=== PATIENT | female | born 1960 | race Hispanic/Latino ===

== ENCOUNTER 2019-12-10 15:16 | Emergency (ER) | payer OTHER, SELFPAY ==
--- NOTE | ~2019-12-10 | XR_ITS ---
EXAMINATION: XR chest 1V portable EXAM DATE: 12/10/2019 16:47 INDICATION: Sinus. TECHNIQUE: Portable AP frontal chest x-ray was obtained. There is no prior study for comparison. FINDINGS: The lungs are clear. There are no pleural effusions. The cardiomediastinal silhouette is within normal limits. There is no pneumothorax suspected. The bones and soft tissues are unremarkab le. IMPRESSION: No acute cardiopulmonary findings. Reviewed, dictated and finalized at location A.
--- NOTE | ~2019-12-10 | CT_ITS ---
EXAMINATION: CT brain wo con DATE: 12/10/2019 16:42 INDICATION: Dizziness TECHNIQUE: Computed tomography (CT) of the head was performed without intravenous contrast. The mA wa s adjusted according to patient size. Iterative reconstruction technique was employed. Exam dose: 60 5.33 mGy-cm total exam DLP. COMPARISON: None FINDINGS: There is a prominent anterior left middle cranial fossa arachnoid cyst. No intracranial mass lesion or hemorrhage is evident otherwise. No midline shift or mass effect is no radha elsewhere. Normal ventricular size. Normal burch-white matter differentiation. No subdural or epid ural hematoma. Mild bilateral basal ganglia calcifications. No fracture or bone destruction of the cranial vault. The included paranasal sinuses and mastoid air cells are unremarkable. IMPRESSION: Left middle cranial fossa arachnoid cyst Mild bilateral basal ganglia calcification No acute intracranial finding Reviewed, dictated and finalized at Location A. Reviewed, dictated and finalized at location B.
[2019-12-10 15:21] VITALS: BP 112/83; PULSE 65; RESP 18; TEMP 36.6; O2SAT 100
--- NOTE | 2019-12-10 15:35 | ECG_ITS ---
Measurements Intervals [place] Rate: 55 P: 8 RI: 150 QRS: 19 QRSD: 85 T: 27 QT: 456 QTc: 439 Interpretive Statements SINUS BRADYCARDIA DELAYED PRECORDIAL R/S TRANSITION BORDERLINE ECG Electronically Signed On 12-10-2019 19:44:57 CDT by Glenroy Barrett D.O.
--- NOTE | 2019-12-10 15:35 | ED.GENADULT ---
HPI - General Adult General Chief complaint: Dizziness Stated complaint: Low Blood Pressure Time Seen by Provider: 12/10/19 15:29 Source: RN notes reviewed History of Present Illness HPI narrative: Patient presents emergency department from PCP office for dizziness. Patient states she had an episode of dizziness today where she felt lightheaded and dizzy. Episode lasted for approximately 2 minutes and she went to her PCPs office and was referred to the emergency department for further evaluation. Per the daughter the patient is had 2 episodes over the past 1 month. Patient denies any current dizziness. Denies any vision changes chest pain shortness of breath abdominal pain nausea vomiting numbness tingling in extremities or any other symptoms. Patient does state that she has been worked up for a cyst on the left side of her brain and is scheduled to see a neurosurgeon next week Related Data Home Medications Medication Instructions Recorded Confirmed doxepin 12/10/19 ergocalciferol (vitamin D2) 12/10/19 sertraline mg 12/10/19 Allergies Allergy/AdvReac Type Severity Reaction Status Date / Time Penicillins Allergy Mild Rash Verified 12/10/19 15:24 Review of Systems Review of Systems: Narrative: Gen.: Denies fevers or chills Eyes: Denies eye pain or visual change ENT: Denies congestion Respiratory: Denies shortness of breath or cough CV: Denies chest pain or palpitations GI: Denies abdominal pain nausea, emesis or diarrhea Musculoskeletal: Denies back pain or muscle pain Neuro: Reports dizziness Skin: Denies rash Except as documented, all other systems reviewed and negative [facility] Past Medical History Medical History (Updated 12/10/19 @ 17:41 by Nish Meza DO) Depression Social History Social History (Updated 12/10/19 @ 15:37 by Nish Meza DO) Smoking status: Never smoker Gender identity (if verbalized by the patient): Female Exam Narrative: Exam Narrative: APPEARANCE: No acute distress, nontoxic, resting in bed HEENT: Normocephalic, atraumatic, OMM, TMs clear bilaterally EYES: PERRL, EOMI NECK: Supple, nontender, full range of motion without pain, no meningismus RESPIRATORY: No respiratory distress, clear to auscultation bilaterally with no rhonchi wheezing or rales CARDIOVASCULAR: RRR s murmur ABDOMINAL: Soft, nontender, nondistended MUSCULOSKELETAL: Moves all extremities. No clubbing, cyanosis or edema. NEURO: A and O ?3, following commands, speech normal, no facial droop,muscle strength 5 out of 5 bilateral upper and lower extremities SKIN:: Warm, dry. Normal Color PSYCHIATRIC: Normal affect/mood Course Course Emergency Course: Discussed with patient results of workup and diagnosis. Discussed need for follow-up with primary care, proper use of medication, and reasons to return to the emergency department. Patient understands and agrees to current treatment plan Vital Signs Vital signs: Vital Signs Temperature 97.8 F 12/10/19 15:21 Pulse Rate 65 12/10/19 15:21 Respiratory Rate 18 12/10/19 15:21 Blood Pressure 112/83 12/10/19 15:21 Pulse Oximetry 100 12/10/19 15:21 Temperature 97.8 F 12/10/19 15:21 Pulse Rate 58 L 12/10/19 17:03 Respiratory Rate 18 12/10/19 15:21 Blood Pressure 131/72 12/10/19 17:03 Pulse Oximetry 100 12/10/19 15:21 Medical Decision Making MDM Narrative Medical decision making narrative: Patient's episode of near-syncope is not felt due to high risk cause. Near-syncopal episode was brief and patient is now back to normal mental status. EKG is reviewed without high-risk changes for syncope: There are no signs of prolonged QT or Brugada syndrome. Patient ambulates with a steady gait and is felt to be a reasonable candidate for further evaluation as an outpatient management Vital Signs Vital Signs: Vital Signs Temperature 97.8 F 12/10/19 15:21 Pulse Rate 65 12/10/19 15:21 Respiratory Rate 18 12/10/19 15:21 Blood
[2019-12-10 15:56] LABS: Basophils Percent Auto 0.5 % (0.2-1.2); Eosinophils Absolute Auto 0.1 K/mm3 (0-0.3); Eosinophils Percent Auto 1.4 % (0-4.4); Hematocrit 39.1 % (37.0-47.0); Hemoglobin 12.9 g/dL (12.0-15.0); Immature Granulocyte Absolute 0.02 K/mm3 (0.00-0.031); Immature Granulocyte Percent A 0.3 % (0-0.5); Lymphocytes Absolute Auto 1.38 K/mm3 (0.9-3.2); Lymphocytes Percent Auto 23.3 % (18.3-44.2); Mean Corpuscular Hemoglobin 30.5 pg (26-34); Mean Corpuscular Volume 92.4 fl (80-100); Mean Platelet Volume 10.7 fl (7.4-10.4); Monocytes Absolute Auto 0.4 K/mm3 (0.1-0.6); Monocytes Percent Auto 7.4 % (2.6-8.5); Neutrophils Percent Auto 67.1 % (45.5-73.1); Platelet Count Result 220 k/mm3 (150-375); Red Blood Count 4.23 M/mm3 (4.2-5.4); Red Cell Distribution Width 13.2 % (11.5-14.5); White Blood Count 5.9 K/mm3 (4.5-10.0)
[2019-12-10 16:07] LABS: Alanine Aminotransferase 38 U/L (4-35); Albumin Level 4.4 g/dL (3.5-5.1); Alkaline Phosphatase 67 U/L (38-126); Aspartate Amino Transferase 32 U/L (14-36); Bilirubin,Total 0.6 mg/dL (0.2-1.3); Blood Urea Nitrogen 13 mg/dL (7-17); Calcium 8.8 mg/dL (8.4-10.2); Carbon Dioxide 26 mmol/L (22-30); Chloride 102 mmol/L (98-107); Estimated Glomerular Filt Rate > 60; Glucose 98 mg/dL (65-105); Sodium 137 mmol/L (137-145)
[2019-12-10 16:18] LABS: Troponin I < 0.012 ng/mL (0.000-0.034)
[2019-12-10 16:24] LABS: Partial Thromboplastin Time 34.3 SECONDS (22.3-36.8)
[2019-12-10] MEDS: SODIUM CHLORIDE 0.9% IV 1,000 ML 999 ML IV CONT (16:31)
[2019-12-10 17:02] VITALS: BP 115/57; BP 129/67; PULSE 56; PULSE 60
[2019-12-10 17:03] VITALS: BP 131/72; PULSE 58
[2019-12-10 18:17] LABS: Add Urine Microscopic? YES; Appearance Urine Clear (Clear); Bacteria Urine Trace /hpf; Bilirubin Urine Negative (Negative); Blood Urine Negative (Negative); Color Urine Yellow (Yellow); Glucose Urine UA Negative (Negative); Ketones Urine Negative (Negative); Leukocyte Esterase Ur Negative LEU/UL (Negative); Mucus Urine Rare /lpf; Nitrate Urine Negative (Negative); Protein Urine Negative (Negative); RBC Urine 0-2 /hpf (0-2); Specific Grav Ur 1.018 (1.001-1.035); Squamous Epithelial Cell Urine Occasional /hpf (Few); Urobilinogen Urine Negative mg/dL (<2.0); WBC Urine 0-3 /hpf
== END 2019-12-10 17:50 | disposition home or self-care (01) ==
PROVIDERS: Emergency Provider Emergency Medicine; PCP Emergency Medicine
DX: R42 Dizziness and giddiness (principal); F32.9 Major depressive disorder, single episode, unspecified; R00.1 Bradycardia, unspecified; G93.0 Cerebral cysts
CPT/HCPCS: 36415; 70450; 71045; 80053; 81001; 84484; 85025; 85610; 85730; 93005; 96360; 99284; J7030

== ENCOUNTER 2019-12-11 12:31 | Outpatient (CLI) | payer OTHER, SELFPAY ==
--- NOTE | ~2019-12-11 | MM_ITS ---
EXAMINATION: MM screening nehal BI w olga lidia HISTORY: Screening mammogram TECHNIQUE: Craniocaudal and mediolateral oblique 3-D tomosynthesis images were obtained and synthetic 2-D images were generated. CAD analysis was submitted and interpreted. COMPARISON: No prior mammogram is available for comparison at this institution. BREAST PARENCHYMAL COMPOSITION: There are scattered areas of fibroglandular density. FINDINGS: There is no evidence of suspicious mass, calcification, or architectural distortion to sugg est malignancy in either breast. There has been no suspicious interval change. IMPRESSION: 1. No mammographic evidence of malignancy. 2. Recommend routine screening mammography in one year. BI-RADS Category 1: Negative Reviewed, dictated and finalized at location A.
--- NOTE | ~2019-12-11 | DEXA_ITS ---
Bone Density Report Name: Reina Carlson Age: 59 Sex: Female Ethnicity: Date of : 1960 Indication: postmenopausal osteoporosis; monitoring treatment; Referring Provider: Paresh Deng Study: Bone densitometry was performed. Exam Date: December 11, 2019 Accession number: [id number] Bone Density: Region BMD T-score Z-score Classification AP Spine (L1-L4) 0.736 -2.8 -1.4 Osteoporosis Femoral Neck (Left) 0.451 -3.6 -2.3 Osteoporosis Total Hip (Left) 0.535 -3.3 -2.4 Osteoporosis Total Hip Bilateral Avg 0.536 -3.3 -2.4 Osteoporosis Femoral Neck (Right) 0.562 -2.6 -1.3 Osteoporosis Total Hip (Right) 0.535 -3.3 -2.3 Osteoporosis World Health Organization criteria for BMD impression classify patients as: Normal (T-score at or above -1.0), Osteopenia (T-score between -1.0 and -2.5), or Osteoporosis (T-score at or below -2.5). 10-year Fracture Risk: FRAX not reported because: Some T-score for Spine Total or Hip Total or Femoral Neck at or below -2.5 Treated for osteoporosis Previous Exams: Region Exam Age BMD T-score BMD Change BMD Change Date g/cm2 vs Baseline vs Previous AP Spine(L1-L4) 12/11/2019 59 0.736 -2.8 -0.001(-0.2%) -0.001(-0.2%) 07/31/2016 56 0.737 -2.8 Total Hip(Left) 12/11/2019 59 0.535 -3.3 -0.044(-7.6%)* -0.044(-7.6%)* 07/31/2016 56 0.579 -3.0 Total Hip(Right) 12/11/2019 59 0.535 -3.3 -0.029(-5.2%)* -0.029(-5.2%)* 07/31/2016 56 0.565 -3.1 *Denotes significance at 95% confidence level, LSC for AP Spine = 0.022 g/cm2, LSC for Total Hip = 0.027 g/cm2 Clinical Information Provided by Patient: Is being treated for osteoporosis Has used the following medications: Boniva (i.e. ibandronate), HRT (i.e. estrogen/hormone therapy) Patient maximum height was 60 No regular weight bearing exercise Drinks caffeinated beverages Onset of menses at age 1 Number of children 0 Missed period for more than 6 months in a row Impression: The patient has osteoporosis, based on the Left Femoral Neck T-score. The BMD for the Total Hip(Left) decreased, changing by -7.6% since the last DXA exam. The BMD for the Total Hip(Right) decreased, changing by -5.2% since the last DXA exam. Discussion: SIGNIFICANT BONE LOSS OBSERVED. Adherence to therapy (including calcium and vitamin D intake) should be assessed. If compliance is not a factor, review management and exclusion of secondary causes of bone loss. It is important to ask patients whether they are t
== END 2019-12-11 12:32 | disposition home or self-care (01) ==
LOC: ANHIMG 12:39
PROVIDERS: PCP Emergency Medicine; Visit Provider Emergency Medicine
DX: Z12.31 Encounter for screening mammogram for malignant neoplasm of breast (principal); M81.0 Age-related osteoporosis without current pathological fracture
CPT/HCPCS: 77063; 77067; 77080

== ENCOUNTER 2020-05-04 10:45 | Outpatient (CLI) | payer OTHER, SELFPAY | END 2020-05-04 10:46 | disposition home or self-care (01) | LOC: ANHAUDIO 10:46 | PROVIDERS: PCP Emergency Medicine | DX: H90.3 Sensorineural hearing loss, bilateral (principal) | CPT/HCPCS: 92557; 92567 ==

== ENCOUNTER 2020-05-25 13:20 | Outpatient (CLI) | payer OTHER, SELFPAY ==
--- NOTE | ~2020-05-25 | XR_ITS ---
XR lumbar spine 2-3V DATE: 05/25/2020 14:05 INDICATION: Low back pain. No injury. TECHNIQUE: AP, lateral, coned lateral lumbosacral views COMPARISON: 05/13/2018 lumbar spine FINDINGS: There is diffuse osteopenia. Normal alignment of the lumbar spine. No fracture or bone destruction or spondylolisthesis. The inclu ded lower thoracic and lumbar pedicles are intact. Lumbar and lumbosacral interspaces are relatively well preserved. There is minimal degenerative spurring at L1 to. The sacroiliac joints are intact. IMPRESSION: Diffuse osteopenia Minimal degenerative change Reviewed, dictated and finalized at location B. ENT SUPPORT REPRESENTATIVE
--- NOTE | ~2020-05-25 | XR_ITS ---
XR shoulder LT min 2V DATE: 05/25/2020 14:05 INDICATION: Left shoulder pain TECHNIQUE: 4 views COMPARISON: None FINDINGS: There is diffuse osteopenia. There is mild osteoarthritic spurring of the humeral head. No fracture, dislocation, periosteal reaction or bone destruction or abnormal left shoulder soft tiss ue calcification. IMPRESSION: Osteoarthritis at the left glenohumeral joint Diffuse osteopenia Reviewed, dictated and finalized at location B. T CARE PROVIDER
[2020-05-25 14:48] LABS: Add Urine Microscopic? YES; Appearance Urine Clear (Clear); Bilirubin Urine Negative (Negative); Blood Urine Negative (Negative); Calcium Oxalate Crystals Urine Many /hpf; Color Urine Yellow (Yellow); Glucose Urine UA Negative (Negative); Ketones Urine Trace mg/dL (Negative); Leukocyte Esterase Ur Negative LEU/UL (NEGATIVE); Mucus Urine Moderate /lpf; Nitrate Urine Negative (Negative); Protein Urine Negative (Negative); Squamous Epithelial Cell Urine Rare /hpf (Few); WBC Urine 0-3 /hpf (0-3)
[2020-05-25 14:50] LABS: Specific Grav Ur 1.032 (1.001-1.035)
== END 2020-05-25 13:21 | disposition home or self-care (01) ==
PROVIDERS: PCP Emergency Medicine; Visit Provider Emergency Medicine
DX: M85.88 Other specified disorders of bone density and structure, other site (principal); M19.012 Primary osteoarthritis, left shoulder; R30.0 Dysuria
CPT/HCPCS: 72100; 73030; 81001; 87086; 87088

== ENCOUNTER 2020-05-26 14:00 | Outpatient (RCR) | payer OTHER, SELFPAY | END 2020-05-26 23:59 | disposition home or self-care (01) | LOC: ANHAUDIO 14:00 | PROVIDERS: PCP Emergency Medicine; Visit Provider Emergency Medicine | DX: Z46.1 Encounter for fitting and adjustment of hearing aid (principal) | CPT/HCPCS: 92593; 99199 ==

== ENCOUNTER → 2020-07-05 09:11 | Outpatient (CLI) | payer OTHER, SELFPAY ==
[2020-07-05 19:41] LABS: SARS-CoV-2 RNA PCR Negative
== END ==
PROVIDERS: PCP Emergency Medicine; Visit Provider Emergency Medicine
DX: Z71.84 Encounter for health counseling related to travel (principal); Z20.822 Contact with and (suspected) exposure to COVID-19
CPT/HCPCS: C9803; U0003; U0005

== ENCOUNTER 2020-11-09 09:08 | Emergency (ER) | payer OTHER, SELFPAY ==
[2020-11-09 09:38] VITALS: BP 106/55; PULSE 59; RESP 16; TEMP 35.7; O2SAT 99
--- NOTE | 2020-11-09 10:03 | ED.GENADULT ---
HPI - General Adult General Chief complaint: Upper Respiratory Infection Stated complaint: unspecified Time Seen by Provider: 11/09/20 10:03 Source: patient and RN notes reviewed Mode of arrival: ambulatory Limitations: no limitations History of Present Illness HPI narrative: 60-year-old [place] female presents with complaints of needing to obtain a COVID-19 swab to fly home to [facility] in 3 days. ?Reina reports no symptoms and wants a [id number]. ?Denies cough or chest congestion. ?No Rhinorrhea and nasal congestion. ?Denies fevers. ?No nausea, vomiting, and abdominal pain. ?Tolerating po intake well. ?Denies chest pain, coughing up blood, facial pain, and rash. ?The patient reports she has not been diagnosed with COVID-19. ?The patient reports she received 2 [employer] COVID-19 vaccines. ?The patient reports she is not waiting for the results of a COVID-19 lab test. ?The patient reports she does not have sweats, headaches, dizziness, weakness, myalgia, or fatigue. ?The patient reports she does not have a worsening cough. ?The patient reports she does not have any loss of smell or taste or diarrhea. ?Denies recent traveling. ?Denies concerns for COVID-19 or exposures. ?At this time, the patient is not suspected of having COVID-19. Some parts of this dictation were generated by voice recognition software and may contain typographical and/or grammatical inaccuracies. Related Data Home Medications Medication Instructions Recorded Confirmed ergocalciferol (vitamin D2) 12/10/19 sertraline mg 12/10/19 Unknown Htn Medication 11/09/20 aspirin 11/09/20 escitalopram oxalate mg 11/09/20 Allergies Allergy/AdvReac Type Severity Reaction Status Date / Time Penicillins Allergy Mild Rash Verified 11/09/20 09:45 Review of Systems Review of Systems: Narrative: CONSTITUTIONAL: Denies fever, chills, sweats. Requesting a COVID-19 PCR swab. EYES: Denies visual changes, redness, discharge. ENT: Denies rhinorrhea, congestion, sore throat, otalgia. CARDIOVASCULAR: Denies chest pain, palpitations, edema. RESPIRATORY: Denies wheezing, dyspnea, cough. GASTROINTESTINAL: Denies abdominal pain, nausea, vomiting, diarrhea. SKIN: Denies rash or itching. MUSCULOSKELETAL: Denies acute back pain, joint pain, myalgia. NEUROLOGIC: Denies numbness or focal weakness. PSYCHIATRIC: Denies anxiety or depression, ESTRADA. All systems reviewed & are unremarkable except as noted in HPI and below. [facility] Past Medical History Medical History (Updated 11/09/20 @ 10:17 by SCAR Casillas) Depression Low vitamin D level Mini stroke Sensorineural hearing loss, bilateral Tinnitus, right ear Surgical History Surgical History (Updated 11/09/20 @ 10:13 by SCAR Casillas) No significant past surgical history Family History Family History (Updated 11/09/20 @ 10:14 by SCAR Casillas) Father , Reina reports was related to COVID-19 Hypertension COVID-19 Mother Unknown family medical history Social History Social History (Updated 11/09/20 @ 10:15 by SCAR Casillas) Smoking status: Never smoker Tobacco type: cigarettes Second hand tobacco smoke exposure: No Alcohol intake: current Alcohol use details: socially Substance use: never Substance use type: does not use Living arrangements: with family Occupation/Education: unemployed Gender identity (if verbalized by the patient): Female Comments At time of signature, agree with the nurse past medical, surgical, social, and family history. There is no relevant family history pertinent to the presenting complaint. Exam Narrative: Exam Narrative: GENERAL: This is a well-nourished, well-developed patient, in no apparent distress. Talks in full sentences and ambulates with steady gait without dyspnea. HEAD: Normocephalic, atraumatic. EYES: PERRL. Sclera clear/white. Vision is grossly intact. NOSE: External nose normal with no ob
[2020-11-11 16:57] LABS: SARS-CoV-2 RNA PCR Negative
== END 2020-11-09 10:21 | disposition home or self-care (01) ==
PROVIDERS: Emergency Provider Nurse Practitioner Family
DX: Z20.822 Contact with and (suspected) exposure to COVID-19 (principal)
CPT/HCPCS: 99213; C9803; G0463; U0003; U0005

== ENCOUNTER 2021-09-10 13:23 | Emergency (ER) | payer OTHER, SELFPAY ==
[2021-09-10 13:36] VITALS: BP 122/67; PULSE 65; RESP 18; TEMP 36.2; O2SAT 100
--- NOTE | 2021-09-10 14:08 | ED.WOUNDLAC ---
HPI - Wound/Laceration General Chief Complaint: Wound/Laceration Stated Complaint: Laceration on finger Time Seen by Provider: 09/10/21 14:00 Source: patient, RN notes reviewed and old records reviewed Mode of arrival: ambulatory Limitations: no limitations History of Present Illness HPI narrative: 61-year-old female presents to the [facility] with 1/2 cm laceration to the distal second finger palmar aspect and a splinter in the right palmar aspect of the hand. Patient states that she cut her finger with an box knife approximately an hour prior to arrival. Has had a splinter in her hand since yesterday. Has not attempted to remove it. Unknown last tetanus, patient states that she does not want a tetanus at this time. Related Data Home Medications Medication Instructions Recorded Confirmed ergocalciferol (vitamin D2) 1,250 mcg PO WEEKLY 12/10/19 09/10/21 sertraline 100 mg PO DAILY 12/10/19 09/10/21 aspirin 81 mg PO DAILY 11/09/20 09/10/21 escitalopram oxalate 10 mg PO DAILY 11/09/20 09/10/21 Allergies Allergy/AdvReac Type Severity Reaction Status Date / Time Penicillins Allergy Mild Rash Verified 09/10/21 14:07 Review of Systems Review of Systems: All systems reviewed & are unremarkable except as noted in HPI and below Constitutional: Constitutional: Reports no additional constitutional complaints, Denies chills and Denies fever(s) Eyes: Eyes: Reports no additional eye complaints ENT: Reports system reviewed and no additional complaints, except as documented Cardiovascular: Cardiovascular: Reports no additional cardiovascular complaints, Denies chest pain and Denies dyspnea Respiratory: Respiratory: Reports no additional respiratory complaints, Denies cough and Denies dyspnea Gastrointestinal: Gastrointestinal: Reports no additional gastrointestinal complaints, Denies abdominal pain, Denies nausea and Denies vomiting Musculoskeletal: Musculoskeletal: Reports no additional musculoskeletal complaints Integumentary/Breasts: Skin/Breast: Reports as per HPI Comments: Splinter left hand, laceration left second finger Neurologic: Reports system reviewed and no additional complaints, except as documented Psychiatric: Psychiatric: Reports no additional psychiatric complaints Allergic/Immunologic: Allergic/Immunologic: Reports no additional allergic/immunologic complaints PMFSH Past Medical History Medical History (Updated 09/10/21 @ 19:00 by Parul Haro APRN) Depression Low vitamin D level Mini stroke Sensorineural hearing loss, bilateral Tinnitus, right ear Surgical History Surgical History No significant past surgical history Family History Family History Father , Reina reports was related to COVID-19 Hypertension COVID-19 Mother Unknown family medical history Social History Social History Smoking status: Never smoker Tobacco type: cigarettes Second hand tobacco smoke exposure: No Alcohol intake: current Alcohol use details: socially Substance use: never Substance use type: does not use Gender identity (if verbalized by the patient): Female Comments At the time of my signature, I reviewed and agree with the nursing past medical, surgical, social, and family history. There is no relevant family history pertinent to the patient complaint. Exam Const: General: healthy appearing, no acute distress and alert Nutritional Appearance: well nourished Orientation/consciousness: patient oriented x3 Limitations: no limitations HENMT: Head: normal to inspection Ears: external ears normal Eyes: Pupils: Equal, round and reactive pupils present Neck: Neck: normal visual inspection, no lymphadenopathy and no meningeal signs Chest: Chest palpation & inspection: normal inspection of the chest Resp:
--- NOTE | 2021-09-10 14:51 | PC.NURSE ---
Pt had agreed to Tetanus vaccination during exam however once vaccination was to be administered pt decided she did not want it and told the provider she was afraid she was going to have a reaction to the pain. Provider discussed risks of not updating Tetanus vaccination. RN wasted medication.
== END 2021-09-10 14:25 | disposition home or self-care (01) ==
PROVIDERS: Emergency Provider Nurse Practitioner
DX: S61.211A Laceration without foreign body of left index finger without damage to nail, initial encounter (principal); W26.0XXA Contact with knife, initial encounter; S61.442A Puncture wound with foreign body of left hand, initial encounter; W45.8XXA Other foreign body or object entering through skin, initial encounter; F32.A Depression, unspecified; E55.9 Vitamin D deficiency, unspecified; I25.2 Old myocardial infarction
CPT/HCPCS: 12001; 99212; G0463

== ENCOUNTER 2022-06-24 13:04 | Outpatient (RCR) | payer OTHER, SELFPAY ==
--- NOTE | 2022-06-24 14:19 | PTOPEVAL1 ---
Assessment and note entered by Franklin Loja, PT Evaluation Information Diagnosis Generalized weakness Subjective Information Patient reports a history of osteoporosis and that she does not feel as strong as she could be. Also states she likes walking and does a lot of that without issue, but stairs really tire her out . In addition patient communicates her balance is not great and she is worried about falling. Reported Pain Level Pain Score 0: Self Report Assessment PT Clinical Summary Reina is a 62 year old female coming into the clinic for a diagnosis of generalized weakness. She demonstrates weakness in her hamstrings along with decreased 5 sit to stand test time and decreased balance testing scores. Physical therapy will be working on the patient with resistance exercises, cardio improvement, and balance activities. Plan of Care Interventions Electrical Stimulation,Gait Training,Hot Pack/Cold Pack,Manual Therapy,Neuro Re-education,Patient/ Caregiver Education,Therapeutic Activities, Therapeutic Exercise,Ultrasound PT Services Indicated Yes Treatment Frequency and 1-2x/wk for 4 weeks Duration These treatments will address the objective and functional deficits as defined above. The patient will be advanced safely and appropriately in order for the patient to progress towards his/her prior level of function. Additional exercises will be introduced and as well as a comprehensive home exercise program upon discharge, if needed, ?to ensure carryover of functional gains achieved in the clinic. This treatment plan has been reviewed and agreement upon by the patient.
--- NOTE | 2022-07-05 15:22 | PCPTNOTE ---
Pt no showed for her appt today. TELEGRAPH PLANT MAINTAINER called and she stated she forgot. She was reminded of her next appt next abbie.
--- NOTE | 2022-07-12 15:52 | PCPTNOTE ---
Pt no showed visit again today. MISSILE AND MISSILE CHECKOUT TECHNICIAN called and left message.
--- NOTE | 2022-08-06 13:17 | PCPTNOTE ---
PHYSICAL THERAPY DISCHARGE 08-06-22 Attending Provider: Elen England APRN,AIRBRUSH ARTIST PHOTOGRAPHY Patient:Reina Carlson Date of :1960 Ms. Carlson has not returned for any further treatments since the initial PT evaluation on 06/24/2022, therefore she will be discharged at this time. She did not show for 3 scheduled appointments. The goals were not assessed. Thank you for referring this patient to [facility].
--- NOTE | 2022-08-06 13:19 | PCPTNOTE ---
pt did not show for today's reeval appt.
== END 2022-08-06 13:43 | disposition home or self-care (01) ==
LOC: ANHPT 13:04
DX: M62.81 Muscle weakness (generalized) (principal)
CPT/HCPCS: 97110; 97161; 99199

== ENCOUNTER 2022-07-01 15:33 | Outpatient (RCR) | payer OTHER, SELFPAY | END 2022-07-01 23:59 | disposition home or self-care (01) | LOC: ANHAUDIO 15:33 | DX: Z46.1 Encounter for fitting and adjustment of hearing aid (principal) | CPT/HCPCS: 92593 ==

== ENCOUNTER 2022-09-18 19:30 | Emergency (ER) | payer OTHER, SELFPAY ==
--- NOTE | 2022-09-18 19:35 | ED.FEMALEGU ---
HPI - Female Genitourinary General Chief complaint: Urogenital-Female Stated complaint: UTI Time Seen by Provider: 09/18/22 19:35 Source: patient Mode of arrival: ambulatory Limitations: no limitations History of Present Illness HPI Narrative: 62-year-old female presents with complaint of urinary frequency, dysuria, incontinence for the past 3 days. Denies nausea vomiting diarrhea. No abdominal or back Pain. afebrile. All systems reviewed and negative except as noted above. Related Data Home Medications Medication Instructions Recorded Confirmed ergocalciferol (vitamin D2) 1,250 1,250 mcg PO WEEKLY 12/10/19 09/10/21 mcg (50,000 unit) capsule aspirin 81 mg tablet,delayed 81 mg PO DAILY 11/09/20 09/10/21 release escitalopram oxalate 10 mg tablet 10 mg PO DAILY 11/09/20 09/10/21 cetirizine 10 mg tablet mg 09/18/22 09/18/22 Allergies Allergy/AdvReac Type Severity Reaction Status Date / Time Penicillins Allergy Mild Rash Verified 09/18/22 19:39 Review of Systems Review of Systems: CONSTITUTIONAL: Denies fever, chills, or sweats. EYES: Denies visual changes, redness, or discharge. ENT: Denies rhinorrhea, congestion, sore throat, or otalgia. CARDIOVASCULAR: Denies chest pain, palpitations, or edema. RESPIRATORY: Denies cough or dyspnea. GASTROINTESTINAL: Denies abdominal pain, nausea, vomiting, or diarrhea. GENITOURINARY: Reports dysuria frequency, incontinence. Denies hematuria. SKIN: Denies rash or itching. MUSCULOSKELETAL: Denies back pain, joint pain, or myalgia. NEUROLOGIC: Denies headache, numbness, or weakness. PSYCHIATRIC: Denies anxiety or depression. All other systems reviewed are negative, except as documented in HPI. [facility] Past Medical History Medical History (Updated 09/18/22 @ 19:51 by Brittany Danielson NP) Depression Low vitamin D level Mini stroke Sensorineural hearing loss, bilateral Tinnitus, right ear Surgical History Surgical History No significant past surgical history Family History Family History Father , Reina reports was related to COVID-19 Hypertension COVID-19 Mother Unknown family medical history Social History Social History Smoking status: Never smoker Tobacco type: cigarettes Second hand tobacco smoke exposure: No Alcohol intake: current Alcohol use details: socially Substance use: never Substance use type: does not use Living arrangements: with family Occupation/Education: unemployed Gender identity (if verbalized by the patient): Female Comments At time of signature, agree with nursing past medical, surgical, social and family history. There is no relevant family history pertinent to the presenting complaint. Exam Narrative: GENERAL: This is a well-nourished, well-developed patient, in no apparent distress. HEAD: normocephalic, atraumatic. EYES: PERRL. Sclera clear/white. Vision is grossly intact. EARS: External ears normal NOSE: External nose normal NECK: Neck supple, non-tender without lymphadenopathy, masses or thyromegaly. CARDIOVASCULAR: Regular rate and rhythm without murmurs, gallops, or rubs. RESPIRATORY: Clear to auscultation. Breath sounds equal bilaterally. No wheezes, rales, or rhonchi. SKIN: warm, Dry, intact with no suspicious lesions or rash, good texture and turgor. NEURO: awake, alert, and oriented to person, place and time. There were no obvious focal neurologic abnormalities. EXTREMITIES: No joint tenderness, effusion, or edema noted. Course Course Level of Care: Express Care Visit Vital Signs Vital signs: Vital Signs Temperature 36.8 C 09/18/22 19:37 Pulse Rate 70 09/18/22 19:37 Respiratory Rate 16 09/18/22 19:37 Pulse Oximetry 100 09/18/22 19:37 Oxygen Delivery Room Air 09/18/22 19
[2022-09-18 19:37] VITALS: PULSE 70; RESP 16; TEMP 36.8; O2SAT 100
[2022-09-18 19:49] VITALS: BP 102/60
--- NOTE | 2022-09-20 12:34 | PC.NURSE ---
called and requested results of urine cx. aware is still pending. will call with results.
== END 2022-09-18 19:54 | disposition home or self-care (01) ==
PROVIDERS: Emergency Provider Nurse Practitioner Family; PCP Physician Assistant
DX: N39.0 Urinary tract infection, site not specified (principal); F32.A Depression, unspecified; Z86.73 Personal history of transient ischemic attack (TIA), and cerebral infarction without residual deficits
CPT/HCPCS: 81003; 87086; 87088; 99213; G0463

== ENCOUNTER 2022-12-09 12:07 | Emergency (ER) | payer OTHER, SELFPAY ==
[2022-12-09 12:24] VITALS: BP 91/44; PULSE 63; RESP 16; TEMP 36.3; O2SAT 98
--- NOTE | 2022-12-09 12:39 | ED.FEMALEGU ---
HPI - Female Genitourinary General Chief complaint: Urogenital-Female Stated complaint: pain when urinating Time Seen by Provider: 12/09/22 12:40 Source: patient and RN notes reviewed Mode of arrival: ambulatory Limitations: no limitations History of Present Illness HPI Narrative: 62-year-old female presenting for concern of blood in urine this morning. States her urine is appearing darker than normal. She denies dysuria, frequency, urgency, abdominal pain, flank pain, fevers or chills. Endorses intermittent urinary incontinence over the past few months. Started B12 yesterday. Not taking anything for symptoms. Admits to drinking coffee but not much water daily. Related Data Home Medications Medication Instructions Recorded Confirmed ergocalciferol (vitamin D2) 1,250 1,250 mcg PO WEEKLY 12/10/19 12/09/22 mcg (50,000 unit) capsule aspirin 81 mg tablet,delayed 81 mg PO DAILY 11/09/20 12/09/22 release escitalopram oxalate 10 mg tablet 10 mg PO DAILY 11/09/20 12/09/22 Allergies Allergy/AdvReac Type Severity Reaction Status Date / Time Penicillins Allergy Mild Rash Verified 12/09/22 12:25 Review of Systems Review of Systems: CONSTITUTIONAL: Denies body aches, fever, chills, or sweats. CARDIOVASCULAR: Denies chest pain, palpitations, or edema. RESPIRATORY: Denies cough or dyspnea. GASTROINTESTINAL: Denies abdominal pain, nausea, vomiting, or diarrhea. GENITOURINARY: Reports urine color change denies dysuria, frequency, urgency, hematuria, flank pain SKIN: Denies rash, itching, or wounds. MUSCULOSKELETAL: Denies back pain or myalgia. [facility] Past Medical History Medical History Depression Low vitamin D level Mini stroke Sensorineural hearing loss, bilateral Tinnitus, right ear Surgical History Surgical History No significant past surgical history Family History Family History Father , Reina reports was related to COVID-19 Hypertension COVID-19 Mother Unknown family medical history Social History Social History Smoking status: Never smoker Tobacco type: cigarettes Second hand tobacco smoke exposure: No Alcohol intake: current Alcohol use details: socially Substance use: never Substance use type: does not use Living arrangements: with family Occupation/Education: unemployed Gender identity (if verbalized by the patient): Female Comments At time of signature, I have reviewed and agree with nursing past medical, surgical, social and family history unless otherwise noted. Please see nursing chart for further information. There is no relevant family history pertinent to the presenting complaint Exam Narrative: GENERAL: Well-appearing EYES: EOMI. . ENT: Mucous membranes pink and moist. NECK: Normal AROM. Supple. CHEST: No respiratory distress. Clear to auscultation. HEART: Regular rate and rhythm. ABDOMEN: Soft, nontender, nondistended, normal active bowel sounds. No CVA tenderness MUSCULOSKELETAL: No bony tenderness. SKIN: Warm, dry, no rash. NEURO: No focal deficits. Alert and oriented x3. Gait steady. PSYCH: Normal affect. No signs of depression or anxiety. Course Course Emergency Course: Patient is aware of diagnosis, understands and agrees to treatment plan. Anticipatory guidance given. Patient agrees to follow-up as directed and is aware of reasons to seek care at the emergency department. Portions of this record may have been created with voice recognition software Level of Care: Express Care Visit Vital Signs Vital signs: Vital Signs Temperature 97.4 F L 12/09/22 12:24 Pulse Rate 63 12/09/22 12:24 Respiratory Rate 16 12/09/22 12:24 Blood Pressure 91/44 L 12/09/22 12:24 Pulse Oximetr
== END 2022-12-09 12:58 | disposition home or self-care (01) ==
PROVIDERS: Emergency Provider Nurse Practitioner Family; PCP Physician Assistant
DX: R82.998 Other abnormal findings in urine (principal); E55.9 Vitamin D deficiency, unspecified; F32.A Depression, unspecified; Z86.73 Personal history of transient ischemic attack (TIA), and cerebral infarction without residual deficits
CPT/HCPCS: 81003; 99212; G0463

== ENCOUNTER 2023-09-15 18:13 | Emergency (ER) | payer OTHER, SELFPAY ==
[2023-09-15 19:15] VITALS: BP 108/48; PULSE 62; RESP 20; TEMP 36.5; O2SAT 98
--- NOTE | 2023-09-15 19:54 | ED.FEMALEGU ---
HPI - Female Genitourinary General Chief complaint: Urogenital-Female Stated complaint: blood in urine Time Seen by Provider: 09/15/23 19:54 Source: patient Mode of arrival: ambulatory Limitations: no limitations History of Present Illness HPI Narrative: 63-year-old female presents with complaint of blood in urine yesterday. No blood in urine today. States since yesterday she has had dysuria, frequency, not peeing normally . Afebrile. Denies abdominal, back pain. All systems reviewed and negative except as noted above. Related Data Home Medications Medication Instructions Recorded Confirmed ergocalciferol (vitamin D2) 1,250 1,250 mcg PO WEEKLY 12/10/19 09/15/23 mcg (50,000 unit) capsule aspirin 81 mg tablet,delayed 81 mg PO DAILY 11/09/20 09/15/23 release escitalopram oxalate 10 mg tablet 10 mg PO DAILY 11/09/20 09/15/23 thiamine HCl (vitamin B1) 100 mg 100 mg PO DAILY 09/15/23 09/15/23 tablet Allergies Allergy/AdvReac Type Severity Reaction Status Date / Time Penicillins Allergy Mild Rash Verified 09/15/23 18:28 Review of Systems Review of Systems: CONSTITUTIONAL: Denies fever, chills, or sweats. EYES: Denies visual changes, redness, or discharge. ENT: Denies rhinorrhea, congestion, sore throat, or otalgia. CARDIOVASCULAR: Denies chest pain, palpitations, or edema. RESPIRATORY: Denies cough or dyspnea. GASTROINTESTINAL: Denies abdominal pain, nausea, vomiting, or diarrhea. GENITOURINARY: Reports dysuria, frequency, hematuria. SKIN: Denies rash or itching. MUSCULOSKELETAL: Denies back pain, joint pain, or myalgia. NEUROLOGIC: Denies headache, numbness, or weakness. PSYCHIATRIC: Denies anxiety or depression. All other systems reviewed are negative, except as documented in HPI. [facility] Past Medical History Medical History Depression Low vitamin D level Mini stroke Sensorineural hearing loss, bilateral Tinnitus, right ear Surgical History Surgical History No significant past surgical history Family History Family History Father , Reina reports was related to COVID-19 Hypertension COVID-19 Mother Unknown family medical history Social History Social History Smoking status: Never smoker Tobacco type: cigarettes Second hand tobacco smoke exposure: No Alcohol intake: current Alcohol use details: socially Substance use: never Substance use type: does not use Living arrangements: with family Occupation/Education: unemployed Gender identity (if verbalized by the patient): Female Exam Narrative: GENERAL: This is a well-nourished, well-developed patient, in no apparent distress. HEAD: normocephalic, atraumatic. EYES: PERRL. Sclera clear/white. Vision is grossly intact. EARS: External ears normal NOSE: External nose normal NECK: Neck supple, non-tender without lymphadenopathy, masses or thyromegaly. CARDIOVASCULAR: Regular rate and rhythm without murmurs, gallops, or rubs. RESPIRATORY: Clear to auscultation. Breath sounds equal bilaterally. No wheezes, rales, or rhonchi. GASTROINTESTINAL: Abdomen soft, non-tender, nondistended. Bowel sounds are active. No hepato-splenomegaly, or palpable masses. No guarding. SKIN: warm, Dry, intact with no suspicious lesions or rash, good texture and turgor. NEURO: awake, alert, and oriented to person, place and time. There were no obvious focal neurologic abnormalities. EXTREMITIES: No joint tenderness, effusion, or edema noted. Course Course Level of Care: Express Care Visit Vital Signs Vital signs: Vital Signs Temperature 36.5 C 09/15/23 19:15 Pulse Rate 62 09/15/23 19:15 Respiratory Rate 20 09/15/23 19:15 Blood Pressure 108/48 L 09/15/23 19:15 Pulse Oxime
== END 2023-09-15 20:16 | disposition home or self-care (01) ==
PROVIDERS: Emergency Provider Nurse Practitioner Family
DX: N39.0 Urinary tract infection, site not specified (principal); F32.A Depression, unspecified; Z86.73 Personal history of transient ischemic attack (TIA), and cerebral infarction without residual deficits
CPT/HCPCS: 81003; 87086; 87088; 99213; G0463

== ENCOUNTER 2025-02-17 09:02 | Emergency (ER) | payer MEDICARE, SELFPAY ==
--- OUTSIDE RECORDS SUMMARY | 2004-09-18 19:00 | XMS_ITS | Continuity of Care Document ---
Author Organization [employer] [facility] Address [address] [place] [address] Phone Care Team Providers Care Auto Body Estimator Name Role Phone Unavailable Unavailable Unavailable Advance Directives Directive Yes / No Effective Date File Name No Information Encounters Encounter Description Practice Location Reason(s) For Visit Diagnoses Date Provider Providers Copied on Encounter [facility] , [address], [place], [place], [id number], [place] tel:[phone] [facility] [place] No Information No Information Family History Family Member Type Diagnosis Age At Onset No Information Payers Payer name Insurance type Covered democrat ID Authoriza tion(s) No Information Social History Type Description Quantity Date Captured Comments Sex Female Smoking Status No Information Vital Signs Date / Time: Height Weight BMI Pulse Rate Blood Pressure Temperature Respiratory Rate Body Surface Area Head Circumference Head Circ. Percentile Wt./[place]dal[place]. Percentile BMI percentile Pulse Ox Inhaled Ox 1:03 PM 4.10 in 121.00 lbs 0.00 kg/m eter (2) 60 /min 110/80 mm[Hg] 0.00 F 16 /min 0.00 cm 0 % Chief Complaint And Reason For Visit No Information Reason For Referral Reason For Referral No Information History Of Present Illness Encounter Date Complaint History Of Prese nt Illness No Information Functional Status Date Functional Assessmen t No Information Instructions Date Instruction Additional Infor mation No Information Assessments Type Assessment Date No Information Patient Care Teams Name Effective Dates (start - stop) Status Members No Information
--- OUTSIDE RECORDS SUMMARY | 2004-09-18 19:00 | XMS_ITS | Continuity of Care Document ---
Author Organization [employer] [facility] Address [address] [place] [address] Phone Care Team Providers Care Filter Changing Technician Name Role Phone Unavailable Unavailable Unavailable Advance Directives Directive Yes / No Effective Date File Name No Information Encounters Encounter Description Practice Location Reason(s) For Visit Diagnoses Date Provider Providers Copied on Encounter [facility] , [address], [place], [place], [id number], [place] tel:[phone] [facility] [place] No Information No Information Family History Family Member Type Diagnosis Age At Onset No Information Payers Payer name Insurance type Covered alliance party ID Authoriza tion(s) No Information Social History [...]
--- NOTE | ~2025-02-17 | CT_ITS ---
EXAMINATION: CT abdomen pelvis w con DATE: 02/17/2025 10:43 INDICATION: Constipation. TECHNIQUE: Computed tomography (CT) of the abdomen and pelvis was performed with 100 mL Omnipaque 350 intravenous contrast. Automated exposure control and iterative reconstruction technique were employed. The dose-length product was 201.00 mGy-cm. COMPARISON: CT abdomen and pelvis 01/01/2019 FINDINGS: The visualized portions of the lung bases are clear without pneumonia or pleural effusion. The heart size is normal. No pericardial effusion. There is diffuse hepatic steatosis. The gallbladder, spleen, pancreas, adrenal glands, and left kidney are normal. There is a 4 mm cyst in right kidney. There are scattered diverticula in the colon. There is fat stranding around a diverticulum of the sigmoid colon with wall thickening of the sigmoid colon, consistent with diverticulitis. The appendix is normal. There are no dilated loops of bowel. There are no pathologically enlarged lymph nodes. There is no free intraperitoneal fluid. There is mild thoracic and lumbar spondylosis. There is a chronic compression fracture of T12. IMPRESSION: 1. Acute sigmoid diverticulitis. No perforation or abscess. Reviewed, dictated and finalized at location E.
[2025-02-17 09:14] VITALS: BP 101/61; PULSE 65; RESP 16; TEMP 36.4; O2SAT 98
--- OUTSIDE RECORDS SUMMARY | 2025-02-17 09:23 | XMS_ITS | Encounter Summary ---
Author Organization [facility] Address [address] [place] [address] Care Team Providers Care Ruby Software Developer Name Role Phone Elen Lindquist APRN-FAMILY SERVICES WORKER Primary Care Provider Clara Simmons MD Primary Care Provider [phone] Encounter Details Date Type Department Care Team (Late st Contact Info) Description 02/04/2022 Telephone [facility] [address] [place] [address] Elen Lindquist APRN-FAMILY SERVICES WORKER [address] [phone] Social History Tobacco Use Types Packs/Day Years Used Date Smoking Tobacco: Some Days Cigarettes Smokeless Tobacco: Never Comments:socially Alcohol Use Standard Drinks/Week Comments Yes 2 (1 standard drink = 0.6 oz pur e alcohol) PHQ-2 Answer Date Recorded PHQ2 TOTAL SCORE 0 01/18/2022 Comments No Sex and Gender Information Value Date Recorded Sex Assigned at Not on file Legal Sex Female 11:25 AM CDT Gender Identity Not on file Sexual Orientation Not on file documented as of this encounter Miscellaneous Notes * Telephone Encounter - Cody Markiko - 02/04/2022 11:20 AM CDT Pt maribeth wanted to get paperwork filled out from her employer . Pt stated the paperwork is to keep her from taking the flu shot and she needs it as soon as possible. Pt stated she wanted to know how to go about getting the paperwork to the doctor and filled out . Pt stated she was [place] for [place] the [place] so she cant schedule an appointment but she needs this paperwork in before her trip. Pt requesting a callback [phone] documented in this encounter Plan of Treatment Upcoming Encounters Date Type Department Care Team (Late st Contact Info) Description 05/24/2025 3:30 PM PONY EDGER Office Visit [facility] - Geriatrics [address] [place] [phone] Clara Simmons MD [address] [place] [phone] 10/07/2025 10:00 AM CDT Office Visit [facility] - Ophthalmology [address] [place] [phone] documented as of this encounter Goals Goal Patient Goal Type Associated Problems Recent Progress Patient-Stated? Author Medication Management General On track( 022 8:53 AM CDT) Norma Okeefe, RN Note: Expected end date: ongoing Interventions: Take all medications as prescribed Let your doctor know right away about any changes in your medications Make sure to request a refill of your medication at least one week prior to your last dose documented as of this encounter Visit Diagnoses Not on filedocumented in this encounter Additional Health Concerns Infection Onset Date Last Indicated Resolved Time CDIFF Under Investigation 05/24/2022 05/24/2022 5:07 AM CDT documented as of this encounter Care Teams Ruby Software Developer Relationship Specialty Start Date End Date Elen Lindquist APRN-FAMILY SERVICES WORKER PCP - General 06/02/20 08/19/24 Clara Simmons MD [address] [place] [phone] PCP - General Internal Medicine Geriatric Medicine 08/20/24 documented as of this encounter
--- OUTSIDE RECORDS SUMMARY | 2025-02-17 09:23 | XMS_ITS | Encounter Summary ---
Author Organization [facility] Address [address] [place] [address] Care Team Providers Care Underwear Hemmer Name Role Phone Adelina Barrera MD Primary Care Provider Adelina Barrera MD Primary Care Provider Encounter Details Date Type Department Care Team (Late st Contact Info) Description 10/28/2013 Ancillary Orders [facility] General Laboratory Services [address] [facility] [place] [phone] Adelina Barrera MD [address] [facility] [address] [place] [phone] Social History Tobacco Use Types Packs/Day Years Used Date Smoking Tobacco: Never Alcohol Use Standard Drinks/Week Comments No 0 (1 standard drink = 0.6 oz pur e alcohol) Comments No Sex and Gender Information Value Date Recorded Sex Assigned at Not on file Legal Sex Female 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
--- OUTSIDE RECORDS SUMMARY | 2025-02-17 09:23 | XMS_ITS | Encounter Summary ---
Author Organization [facility] Address [address] [place] [address] Care Team Providers Care Supervisor Front Name Role Phone Adelina Barrera MD Primary Care Provider [phone] Encounter Details Date Type Department Care Team (Late st Contact Info) Description 05/24/2014 Ancillary Orders [facility] General Laboratory Services [address] [facility] [place] [phone] Adelina Barrera MD [address] [place] [address] [address] [place] [phone] Social History Tobacco Use Types Packs/Day Years Used Date Smoking Tobacco: Never Smokeless Tobacco: Never Alcohol Use Standard Drinks/Week Comments No 0 (1 standard drink = 0.6 oz pur e alcohol) Comments No Sex and Gender Information Value Date Recorded Sex Assigned at Not on file 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
--- OUTSIDE RECORDS SUMMARY | 2025-02-17 09:23 | XMS_ITS | Encounter Summary ---
Author Organization [facility] Address [address] [facility] [place] [address] Care Team Providers Care Sea Air Land Officer Name Role Phone Clara Simmons MD Primary Care Provider [phone] Encounter Details Date Type Department Care Team (Late st Contact Info) Description 09/06/2024 Telephone [facility] - Geriatrics [address] [place] [address] [place] [phone] Clara Simmons MD [address] [place] [phone] Social History Tobacco Use Types Packs/Day Years Used Date Smoking Tobacco: Some Days Cigarettes 0.1 40 Smokeless Tobacco: Never Alcohol Use Standard Drinks/Week Comments Yes 2 (1 standard drink = 0.6 oz pur e alcohol) PHQ-2 Answer Date Recorded PHQ2 TOTAL SCORE 1 12/20/2022 Comments No Sex and Gender Information Value Date Recorded Sex Assigned at Not on file Legal Sex Female 11:25 AM CDT Gender Identity Not on file Sexual Orientation Not on file documented as of this encounter Functional Status * Is person deaf or have serious hearing difficulty? Answer Date of Assessment Author No 06/09/2023 2:13 PM Verito Reeves RN * Is person blind or have serious difficulty seeing? Answer Date of Assessment Author No 06/09/2023 2:13 PM Verito Reeves RN * Does person have serious difficulty walking/climbing stairs? Answer Date of Assessment Author No 06/09/2023 2:13 PM Veriot Reeves RN * Does person have difficulty dressing/bathing? Answer Date of Assessment Author No 06/09/2023 2:13 PM Verito Reeves RN * Does person have difficulty doing errands alone? Answer Date of Assessment Author No 06/09/2023 2:13 PM Verito Reeves RN documented as of this encounter Mental Status * Does person have difficulty concentrating/remembering/making decisions? Answer Entry Date Author No 06/09/2023 2:13 PM Verito Reeves RN documented in this encounter Miscellaneous Notes * Telephone Encounter - Geno Mars - 09/06/2024 12:10 PM CDT Current Provider: Dr. Simmons Reason for Call: Ms. Reina Carlson needs PRIOR AUTH for three medicines. tretinoin (Retin-A) 0.05 % cream Vitamin D 3 Vitamin B 1 cetirizine (ZyrTEC) 10 MG tablet (Pt would like to know what is this med for) [id number] [address] [facility] [id number] [facility] 159 Patient Call Back Number: [phone] documented in this encounter Plan of Treatment Upcoming Encounters Date Type Department Care Team (Late st Contact Info) Description 05/24/2025 3:30 PM ANNEALER Office Visit [facility] - Geriatrics [address] [place] [phone] Clara Simmons MD [address] [place] [phone] 10/07/2025 10:00 AM CDT Office Visit [facility] - Ophthalmology [address] [place] [phone] documented as of this encounter Goals Goal [...] on filedocumented in this encounter Care Teams Sea Air Land Officer Relationship Specialty Start Date End Date Clara Simmons MD [address] [place] [phone] PCP - General Internal Medicine Geriatric Medicine 08/20/24 documented as of this encounter
--- OUTSIDE RECORDS SUMMARY | 2025-02-17 09:23 | XMS_ITS | Encounter Summary ---
Author Organization [facility] Address [address] [facility] [place] [address] Care Team Providers Care Loss Prevention Auditor Name Role Phone Clara Simmons MD Primary Care Provider [phone] Reason for Referral * Radiology Services (Routine) - Open Specialty Diagnoses / Procedures Referred By Contac t Referred To Contact Ultrasound Diagnoses PMB (postmenopausal bleeding) Procedures US Pelvis W Transvag Non Ob Chen Ballard MD [address] [place] [address] Phone: tel: fax: Referral ID Status Reason Start Date Expiration Date Visits Re quested Visits Authorized [id number] Open 10/27/2024 10/27/2025 1 1 Reason for Visit * Reason Onset Date Comments Nurse Only 10/27/2024 Encounter Details Date Type Department Care Team (Late st Contact Info) Description 10/27/2024 Telephone [facility] - FOREIGN EXCHANGE SERVICES MANAGER [address] [place] [address] Chen Ballard MD [address] [place] [address] Nurse Only Social History Tobacco Use Types Packs/Day Years Used Date Smoking Tobacco: Some Days Cigarettes 0.1 40 Smokeless Tobacco: Never Alcohol Use Standard Drinks/Week Comments Yes 2 (1 standard drink = 0.6 oz pur e alcohol) PHQ-2 Answer Date Recorded Patient Health Questionnaire-2 Score 0 10/14/2024 Comments No Sex and Gender Information Value [...] encounter Miscellaneous Notes * Telephone Encounter - Alyssa Martins RN - 10/27/2024 2:18 PM CDT US order under procedures. RN ordered under imaging. RN called pt . No answer, left VM to make aware can schedule now and to please call us back once she has that appt so we can schedule a f/u with Dr Varela * Telephone Encounter - Freddie Freeman - 10/27/2024 2:12 PM CDT Pt calling needing an order sent over to get her US scheduled she left number for [facility] documented in this encounter Plan of Treatment Upcoming Encounters Date Type Department Care Team (Late st Contact Info) Description 05/24/2025 3:30 PM HEAD OF PHYSICS Office Visit [facility] - Geriatrics [address] [place] [phone] Clara Simmons MD [address] [place] [phone] 10/07/2025 10:00 AM CDT Office Visit [facility] - Ophthalmology [address] [place] [phone] Scheduled Orders Name Type Priority Associated Diagnoses Orde r Schedule US Pelvis W Transvag Non Ob Imaging Routine PMB (postmenopausal bleeding) 1 Occurrences starting 10/27/2024 until 10/27/2025 documented as of this encounter Goals Goal [...] documented as of this encounter Visit Diagnoses Diagnosis PMB (postmenopausal bleeding)- Primary Postmenopausal bleeding documented in this encounter Care Teams Loss Prevention Auditor Relationship Specialty Start Date End Date Clara Simmons MD [address] [place] [phone] PCP - General Internal Medicine Geriatric Medicine 08/20/24 documented as of this encounter
--- OUTSIDE RECORDS SUMMARY | 2025-02-17 09:23 | XMS_ITS | Clinical Summary ---
Author Organization [facility] Address [address] [facility] [place] [address] Phone Care Team Providers Care Property Officer Name Role Phone Unavailable Primary Care Provider Unavailabl e Allergies Active Allergy Reactions Criticality Noted Date Comments Penicillins Unknown 08/12/2011 Teriparatide Other (See Comments) 09/02/2013 Made her ill Medications CETIRIZINE HCL (ZYRTEC ORAL) Take by mouth. Prn Active ibandronate (BONIVA) 150 mg tablet TAKE 1 TABLET BY MOUTH EVERY 30 DAYS 3 Tablet 1 03/29/2015 Active PARoxetine HCl (PAXIL) 20 mg tabletIndication s:Anxiety,Depres nick Take 2 Tablet (40 mg) by mouth daily. 60 Tablet 5 07/04/2015 Active clonazePAM (KLONOPIN) 0.5 mg TabletIndication s:Anxiety Take 1 Tablet (0.5 mg) by mouth 2 times daily. 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 Overview (10/26/2013): -unclear what underlying etiology was Menopause 10/26/2013 Family history of diabetes mellitus 09/02/2013 Panic attacks 09/02/2013 Depression 09/02/2013 Fatigue 09/02/2013 Resolved Problems Problem Noted Date Diagnosed Date Resolved Date Family history of breast cancer 09/02/2013 10/26/2013 Family history of colon cancer 09/02/2013 10/26/2013 Family History Medical History Relation Name Comments Unknown Brother Cancer Father prostate Hypertension Father Diabetes Mother Heart Disease Mother Unknown Sister Breast Cancer Neg Hx except for aun t Colon Cancer Neg Hx except for uncl e Ovarian Cancer Neg Hx Relation Name Status Comments Brother Alive Father Alive Mother Alive Sister Alive Social History Tobacco Use Types Packs/Day Years Used Date Smoking Tobacco: Never Smokeless Tobacco: Never Alcohol Use Standard Drinks/Week Comments No 0 (1 standard drink = 0.6 oz pur e alcohol) Comments No Sex and Gender Information Value Date Recorded Sex Assigned at Not on file Legal Sex Female 6:20 AM ROLLED GOLD PLATER Gender Identity Not on file Sexual Orientation Not on file Occupation Industry Job Start Date Job End Date Not on file Not on file Not on file Not on file Last Filed Vital Signs Vital Sign Reading Time Taken Comments Blood Pressure 104/66 09/13/2015 3:01 PM CDT Pulse 82 09/13/2015 3:01 PM CDT Temperature 36.7 C (98.1 F) 07/27/2015 11:47 AM ROLLED GOLD PLATER Respiratory Rate 14 03/28/2014 1:58 PM ROLLED GOLD PLATER Oxygen Saturation 95% 07/27/2015 11:47 AM ROLLED GOLD PLATER ra Inhaled Oxygen Concentration - - Weight 57.2 kg (126 lb) 09/13/2015 3:01 PM CDT Height 149.9 cm (4' 11) 09/13/2015 3:01 PM CDT Body Mass Index 25.45 09/13/2015 3:01 PM CDT Plan of Treatment Health Maintenance Due Date Last Done Comments DTAP/TDAP/TD VACCINES (1 - Tdap) 1978 FIT-DNA Q 3 years 2004 FIT/FOBT Q 1 year 2004 Flex Sig/CT Colonography Q 5 years 2004 PNEUMOCOCCAL VACCINE 50+ YEA RS (1 of 1 - PCV) 2009 ZOSTER VACCINE (1 of 2) 2009 BREAST CANCER SCREENING 10/01/2014 10/01/2013 OSTEOPOROSIS SCREENING 2024 09/15/2013, 2013 COLORECTAL SCREENING 03/28/2024 03/28/2014, 03/28/20 14 Colorectal Cancer Screening 03/28/2024 INFLUENZA VACCINE (#1) 2024 RSV VACCINE (60+ or ) (1 - 1-dose 75+ series) 2034 Procedures Procedure Name Priority Date/Time Associated Diagnosis Comments ENDOSCOPY, COLON, SCREENING Routine 03/28/2014 MAMMO SCREEN BILAT W OR WO CAD Routine 10/01/2013 3:49 PM CDT Other screening mammogram XR DEXA BONE DENSITY AXIAL 1 OR MORE SITES Routine 09/15/2013 8:46 AM CDT Osteoporosis from Last 3 Months or Most Recently Relevant to Health Maintenance Results * ENDOSCOPY, COLON, SCREENING (03/28/2014) Whit Sanchez MD GI PROCEDURE ORDERABLES Edited Result - Final * MAMMO DIGITAL SCREEN BILAT (10/01/2013 3:49 PM CDT) Anatomical Region Laterality Modality Breast Bilateral Mammography 10/01/2013 2:51 PM CDT Impressions 10/12/2013 10:58 AM CDT IMPRESSION: CATEGORY 1: NEGATIVE MAMMOGRAM No evidence of malignancy. Recommend routine screening mammogram in one year. Narrative 10/12/2013 10:58 AM CDT PROCEDURE: Bilateral screening mammography with computer-aided detection DATE: 10/01/2013 COMPARISON: Comparison is made to previous bilateral mammogram dated 11/15/2010 from [facility] in [place], [place]. HISTORY: Screening for breast cancer. FINDINGS: This examination was reviewed with the aid of computer aided detection system (CAD). CC and MLO views show heterogeneously dense fibroglandular tissue which may obscure small lesions with no significant changes in the architectural pattern of either breast. No new or enlarging mass, architectural distortion, suspicious microcalcifications, or skin thickening is found to suggest developing malignancy. Procedure Note Joaquim Begum MD - 10/12/2013 PROCEDURE: Bilateral screening mammography with computer-aided detection DATE: 10/01/2013 COMPARISON: Comparison is made to previous bilateral mammogram dated 11/15/2010 from [facility] in [place], [place]. HISTORY: Screening for breast cancer. FINDINGS: This examination was reviewed with the aid of computer aided detection system (CAD). CC and MLO views show heterogeneously dense fibroglandular tissue which may obscure small lesions with no significant changes in the architectural pattern of either breast. No new or enlarging mass, architectural distortion, suspicious microcalcifications, or skin thickening is found to suggest developing malignancy. IMPRESSION IMPRESSION: CATEGORY 1: NEGATIVE MAMMOGRAM No evidence of malignancy. Recommend routine screening mammogram in one year. Leda Ralph APRN MAMMO ORDERABLES Final Resu lt * (ABNORMAL) XR DEXA BONE DENSITY AXIAL 1 OR MORE SITES (09/15/2013 8:46 AM CDT) Anatomical Region Laterality Modality Computed Radiogr aphy Narrative 09/15/2013 11:26 AM CDT DXA Bone Density Report 09/15/2013 Age: 53 y.o. Gender: female Equipment: [employer] Respiratory Care Specialist: Nithya Quinn CDT LSC: Spine= 0.026 gm/cm Hip total: Right= 0.017gm/cm Left= 0.024 gm/cm Risk factors: Non-modifiable: female and personal history of fracture as an adult Potentially modifiable: estrogen deficient and body weight below 127 pounds Medications: none Other indication: chronic amenorrhea since a teenager. History of bone loss. Patient took teriparatide for six months and discontinued due to side effects. She took ibandronate for 2-3 years (on and off). To my knowledge she is not currently taking an anti-resorptive therapy. Interpretation: According to World Health Organization criteria, osteoporosis is a bone mineral density (BMD) of less than or equal to -2.5 standard deviations (SD) below the mean of the young adult reference population (T-score of -2.5 or less) in postmenopausal females and men age 50 or over. In this age group, low bone mass (osteopenia) is diagnosed with a T-score of -1.1 to -2.4. People with low bone mass are not necessarily at high fracture risk, and other risk factors must be utilized in determining the significance of low bone mass in these individuals. Reina Carlson has a T-score of -2.9 at the AP L1-L4 spine. The AP L1-L4 spine BMD is 0.837 gm/cm . Reina Carlson has a T-score of -3.6 at the right total hip. The right total hip BMD is 0.551 gm/cm . Opinion: Osteoporosis is present. I cannot utilize FRAX due to the previous therapy. I am concerned this patient is still at increased risk for fracture. This patient does meet National Osteoporosis Foundation guidelines for consideration to pharmacologic therapy. Z-score at the right total hip is -3.0. It may be helpful to evaluate for secondary causes of bone loss with reinstitution of therapy as indicated. Follow-up densitometry recommended in 2 years. Vertebral Fracture Assessment (VFA) Indication for exam: osteoporosis Equipment: [employer] Plus [employer] s semiquantitative analysis and assessment criteria are utilized for vertebral fracture identification and classification. VFA is designed to detect vertebral deformities, not to determine etiology or to evaluate other abnormalities Technical quality is good from T11-L3 and fair from T5-T10 with some limitations due to artifact from T8-T10 and L4. Opinion: I do not identify a vertebral compression fracture. Procedure Note Julianne Fuentes MD - 09/15/2013 DXA Bone Density Report 09/15/2013 Age: 53 y.o. Gender: female Equipment: [employer] Respiratory Care Specialist: Nithya Quinn CDT LSC: Spine= 0.026 gm/cm Hip total: Right= 0.017gm/cm Left= 0.024gm/cm Risk factors: Non-modifiable: female and personal history of fracture as an adult Potentially modifiable: estrogen deficient and body weight below 127pounds Medications: none Other indication: chronic amenorrhea since a teenager. History of boneloss. Patient took teriparatide for six months and discontinued due toside effects. She took ibandronate for 2-3 years (on and off). To myknowledge she is not currently taking an anti-resorptive therapy. Interpretation: According to World Health Organization criteria,osteoporosis is a bone mineral density (BMD) of less than or equal to -2.5standard deviations (SD) below the mean of the young adult referencepopulation (T-score of -2.5 or less) in postmenopausal females and men age50 or over. In this age group, low bone mass (osteopenia) is diagnosedwith a T-score of -1.1 to -2.4. People with low bone mass are notnecessarily at high fracture risk, and other risk factors must be utilizedin determining the significance of low bone mass in these individuals. Reina Carlson has a T-score of -2.9 at the AP L1-L4 spine. The AP L1-J7xvyly BMD is 0.837 gm/cm . eRina Carlson has a T-score of -3.6 at the right total hip. The righttotal hip BMD is 0.551 gm/cm . Opinion: Osteoporosis is present. I cannot utilize FRAX due to theprevious therapy. I am concerned this patient is still at increased riskfor fracture. This patient does meet National Osteoporosis Foundationguidelines for consideration to pharmacologic therapy. Z-score at theright total hip is -3.0. It may be helpful to evaluate for secondarycauses of bone loss with reinstitution of therapy as indicated. Follow-updensitometry recommended in 2 years. Vertebral Fracture Assessment (VFA) Indication for exam: osteoporosis Equipment: [employer] Gen[employer] semiquantitative analysis and assessment criteria are utilizedfor vertebral fracture identification and classification. VFA is designedto detect vertebral deformities, not to determine etiology or to evaluateother abnormalities Technical quality is good from T11-L3 and fair from T5-T10 with somelimitations due to artifact from T8-T10 and L4. Opinion: I do not identify a vertebral compression fracture. Leda Ralph APRN DIAGNOSTIC IMAGING ORDERABL ES Final Result from Last 3 Months or Most Recently Relevant to Health Maintenance Advance Directives For more information, please contact: [phone] * Full Code (Latest Code Status on File) Date Activated Date Inactivated Comments 03/28/2014 11:15 AM 03/28/2014 4:03 PM
--- OUTSIDE RECORDS SUMMARY | 2025-02-17 09:23 | XMS_ITS | Clinical Summary ---
Author Organization [facility] Address [address] [place] [address] Phone Care Team Providers Care Dance Choreographer Name Role Phone Paresh Deng MD Primary Care Provider [phone] Medications hydrOXYzine (VISTARIL) 100 MG Capsule Take 100 mg by mouth 3 times daily as needed for Itching. Active divalproex (DEPAKOTE SPRINKLE) 125 MG Capsule Delayed Release Sprinkle Take 125 mg by mouth 2 times daily. Active sertraline (ZOLOFT) 100 MG Tablet Take 50 mg by mouth daily. Active traZODone (DESYREL) 50 MG Tablet Take 50 mg by mouth nightly. Active busPIRone (BUSPAR) 15 MG Tablet Take 15 mg by mouth 3 times daily. 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 Social History Tobacco Use Types Packs/Day Years Used Date Smoking Tobacco: Never Smokeless Tobacco: Never Alcohol Use Standard Drinks/Week Comments No 0 (1 standard drink = 0.6 oz pur e alcohol) Sexually Active Control Partners Comments Not Currently Comments Unknown Sex and Gender Information Value Date Recorded Sex Assigned at Not on file Legal Sex Female 4:29 PM CDT Gender Identity Not on file Sexual Orientation Not on file Plan of Treatment Health Maintenance Due Date Last Done Comments Hepatitis C Virus (HCV) Screening 1959 TdaP Immunization 1959 Pap Smear 1980 Cervical Cancer Screening (CCS) 1989 HPV/Cotest 1989 Cologuard 2004 Colonoscopy 2004 Colorectal Cancer Screening 2004 Immunochemical Fecal Occult Blood 2004 Pneumococcal Immunization (5 0+ years) (1 of 1 - PCV) 2009 Zoster Immunization (1 of 2) 2009 Influenza Immunization (#1) 2025 SARS-COV-2 Immunization ( season) 2025 05/09/2021, 09/20/2020, 08/30/2020 Respiratory Syncytial Virus (RSV) Immunization (Adult) (1 - 1-dose 75+ series) 2034 Hepatitis B Immunization Aged Out No longer eligible based on patient's age to complete this topic Human Papillomavirus (HPV) Immunization Aged Out No longer eligible b ased on patient's age to complete this topic Meningococcal Immunization (ACWY) Aged Out No longer eligible b ased on patient's age to complete this topic Rotavirus Immunization Aged Out No lo nger eligible based on patient's age to complete this topic Goals Goal Patient Goal Type Associated Problems Recent Progress Patient-Stated? Author Behavioral Health Behavioral Health Improving( 3:38 PM CDT) Yes Cathi Duval, WINE MAKER Note: to have reduction of anxiety and depression symptoms. Goal Reviewed with: patient today Readiness to change: Making a change Department associated with goal: [facility] Steps to achieve goal: will attend counseling/psychotherapy sessions at least once monthly, utilizing individual and/or group sessions to express thoughts and feelings. to identify, verbalize and process at least three contributing factors/triggers to anxiety and depression. to identify and verbalize at least three actions/skills to prevent and/or cope with anxiety and depression. to put into action, at least one time weekly, for one month, an action/skill to prevent and or cope with anxiety and depression. Insurance MEDICAID [employer] Care Teams Dance Choreographer Relationship Specialty Start Date End Date Paresh Deng MD [address] [place] [id number] PCP - General Family Medicine 04/23/18
--- OUTSIDE RECORDS SUMMARY | 2025-02-17 09:23 | XMS_ITS | Encounter Summary ---
Author Organization [facility] Address [address] [place] [address] Care Team Providers Care Dry Chain Offbearer Name Role Phone Adelina Barrera MD Primary Care Provider Adelina Barrera MD Primary Care Provider Encounter Details Date Type Department Care Team (Late st Contact Info) Description 10/28/2013 Ancillary Orders [facility] [address] [facility] [place] [address] Adelina Barrera MD [address] [facility] [address] [place] [phone] Social History Tobacco Use Types Packs/Day Years Used Date Smoking Tobacco: Never Alcohol Use Standard Drinks/Week Comments No 0 (1 standard drink = 0.6 oz pur e alcohol) Comments No Sex and Gender Information Value Date Recorded Sex Assigned at Not on file Legal Sex Female 6:20 AM MEDICAL OFFICE REPRESENTATIVE Gender Identity Not on file Sexual Orientation Not on file documented as of this encounter Plan of Treatment Not on file documented as of this encounter Visit Diagnoses Not on filedocumented in this encounter Care Teams Dry Chain Offbearer Relationship Specialty Start Date End Date Adelina Barrera MD PCP - General Internal Medicine 10/26/13 02/17/14 Adelina Barrera MD PCP - General Internal Medicine 04/20/14 04/30/17 documented as of this encounter
--- OUTSIDE RECORDS SUMMARY | 2025-02-17 09:23 | XMS_ITS | Clinical Summary ---
Author Organization [facility] Address [address] [place] [address] Care Team Providers Care Securities Teller Name Role Phone Unavailable Primary Care Provider Unavailabl e Social History Tobacco Use Types Packs/Day Years Used Date Smoking Tobacco: Never Assessed Comments Unknown Sex and Gender Information Value Date Recorded Sex Assigned at Not on file Legal Sex Female 8:09 PM CDT Gender Identity Not on file Sexual Orientation Not on file Plan of Treatment Health Maintenance Due Date Last Done Comments Colorectal Cancer Screening Colonoscopy (10 Years) 1959 Hepatitis C 1977 DTaP, Tdap and Td Vaccines ( 1 - Tdap) 1978 Mammogram Screening 1999 Pneumococcal Vaccine: 50+ Ye ars (1 of 1 - PCV) 2009 Zoster Vaccines (1 of 2) 2009 Dexa Scan (General) 2024 COVID-19 Vaccine (2023-2 5 season) 2025 RSV Immunization or 60+ Years (1 - 1-dose 75+ series) 2034 Meningococcal B Vaccine Aged Out No l onger eligible based on patient's age to complete this topic Meningococcal Vaccine Aged Out No roxana jakob eligible based on patient's age to complete this topic RSV Immunizations Under 20 Months Aged Out No longer eligible based on patient's age to complete this topic
--- OUTSIDE RECORDS SUMMARY | 2025-02-17 09:23 | XMS_ITS | Encounter Summary ---
Author Organization [facility] Address [address] [place] [address] Care Team Providers Care Prawn Trawler Hand Name Role Phone Elen Lindquist APRN-PURCHASING INTERN Primary Care Provider Clara Simmons MD Primary Care Provider [phone] Encounter Details Date Type Department Care Team (Late Contact Info) Description 06/04/2022 Telephone [facility] [address] [place] [address] Sarah Gonzalez MD [address] [place] [address] [place] [address] Social History Tobacco Use Types Packs/Day Years Used Date Smoking Tobacco: Some Days Cigarettes Smokeless Tobacco: Never Comments:socially Alcohol Use Standard Drinks/Week Comments Yes 2 (1 standard drink = 0.6 oz pur e alcohol) PHQ-2 Answer Date Recorded PHQ2 TOTAL SCORE 0 05/24/2022 Comments No Sex and Gender Information Value Date Recorded Sex Assigned at Not on file Legal Sex Female 11:25 AM CDT Gender Identity Not on file Sexual Orientation Not on file documented as of this encounter Plan of Treatment Upcoming Encounters Date Type Department Care Team (Late Contact Info) Description 05/24/2025 3:30 PM GRINDER SET UP OPERATOR JIG Office Visit [facility] [address] [place] [address], [facility] [place] [phone] Clara Simmons MD [address] [place] [address] [place] [address] 10/07/2025 10:00 AM CDT Office Visit [facility] [address] [place] [address] documented as of this encounter Goals Goal [...] documented as of this encounter Care Teams Prawn Trawler Hand Relationship Specialty Start Date End Date Elen Lindquist, CARSON-PURCHASING INTERN PCP - General 06/02/20 08/19/24 Clara Simmons MD [address] [place] [id number] PCP - General Internal Medicine Geriatric Medicine 08/20/24 documented as of this encounter
--- OUTSIDE RECORDS SUMMARY | 2025-02-17 09:23 | XMS_ITS | Clinical Summary ---
Author Organization [facility] Address [address] [facility] Attn: Epic Prelude ADT [place] [address] Care Team Providers Care Leadite Heater Name Role Phone Unavailable Primary Care Provider Unavailabl e Allergies Active Allergy Reactions Criticality Noted Date Comments Penicillins Unknown 08/12/2011 Teriparatide Other (See Comments) 09/02/2013 Made her ill Medications clonazePAM (KlonoPIN) 0.5 mg TabletIndication s:Anxiety Take 1 Tablet (0.5 mg) by mouth 2 times daily. 30 Tablet 0 07/04/2015 Active PARoxetine HCl (PAXIL) 20 mg tabletIndication s:Anxiety,Depres nick Take 2 Tablet (40 mg) by mouth daily. 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 Overview (09/14/2020): -unclear what underlying etiology was Osteoporosis 10/26/2013 Menopause 10/26/2013 Family history of diabetes mellitus 09/02/2013 Depression 09/02/2013 Panic attacks 09/02/2013 Fatigue 09/02/2013 Resolved Problems Problem Noted Date Diagnosed Date Resolved Date Family history of colon cancer 09/02/2013 10/26/2013 Family history of breast cancer 09/02/2013 10/26/2013 Family History Medical History [...] = 0.6 oz pur e alcohol) Comments Unknown Sex and Gender Information Value Date Recorded Sex Assigned at Not on file Legal Sex Female 12:11 PM SLEEVE BOTTOM FELLER Gender Identity Not on file Sexual Orientation Not on file Last Filed Vital Signs Vital Sign Reading Time Taken Comments Blood Pressure 104/66 09/13/2015 3:01 PM CDT Pulse 82 09/13/2015 3:01 PM CDT Temperature 36.7 C (98.1 F) 07/27/2015 11:47 AM SLEEVE BOTTOM FELLER Respiratory Rate - - Oxygen Saturation - - Inhaled Oxygen Concentration - - Weight 57.2 [...] Procedure Name Priority Date/Time Associated Diagnosis Comments MAMMO SCREEN BILAT W OR WO CAD Routine 10/01/2013 3:49 PM CDT Other screening mammogram XR DEXA BONE DENSITY VERTEBRL FX Routine 09/15/2013 8:46 AM CDT Osteoporosis Osteoporosis, unspecified from Last 3 Months or Most Recently Relevant to Health Maintenance Results * MAMMO SCREEN BILAT W OR WO CAD (10/01/2013 3:49 PM CDT) Anatomical Region Laterality Modality Breast Bilateral Other Impressions 10/12/2013 10:58 AM CDT CATEGORY 1: NEGATIVE MAMMOGRAM No evidence of malignancy. Recommend routine screening mammogram in one year. Narrative 10/12/2013 10:58 AM CDT PROCEDURE: Bilateral screening mammography with computer-aided detection DATE: 10/01/2013 COMPARISON: Comparison is made to previous bilateral mammogram dated 11/15/2010 from [facility] in [place], [place]. HISTORY: Screening for breast cancer. FINDINGS: [...] malignancy. Procedure Note Joaquim Begum MD - 07/20/2022 PROCEDURE: Bilateral screening mammography with computer-aided detection DATE: 10/01/2013 COMPARISON: Comparison is made to previous bilateral mammogram dated 11/15/2010 from [facility] in [place], [place]. HISTORY: Screening for breast cancer. FINDINGS: [...] is found to suggest developing malignancy. IMPRESSION CATEGORY 1: NEGATIVE MAMMOGRAM No evidence of malignancy. Recommend routine screening mammogram in one year. us Leda Ralph SQUIRT MACHINE OPERATOR MAMMO ORDERABLES Final Resu lt * (ABNORMAL) XR DEXA BONE DENSITY VERTEBRL FX (09/15/2013 8:46 AM CDT) Anatomical Region Laterality Modality Spine Other Narrative 09/15/2013 9:26 AM CDT This is order information only. Please see related order for final interpretation. Procedure Note Julianne Fuentes MD - 07/19/2022 This is order information only. Please see related order for final interpretation. us Leda Ralph APRN DIAGNOSTIC IMAGING ORDERABL ES Final Result from Last 3 Months or Most Recently Relevant to Health Maintenance
--- OUTSIDE RECORDS SUMMARY | 2025-02-17 09:23 | XMS_ITS | Encounter Summary ---
Author Organization [facility] Address [address] [place] [address] Care Team Providers Care Public Health Advisor Name Role Phone Elen Lindquist Primary Care Provider Clara Simmons MD Primary Care Provider [phone] Encounter Details Date Type Department Care Team (Late Contact Info) Description 04/15/2023 Telephone [facility] - Centralized Scheduling [address] [place] [phone] Elen Lindquist APRN-CNP [address] [place] [phone] Social History Tobacco Use Types Packs/Day Years [...] (Late Contact Info) Description 05/24/2025 3:30 PM PARALLEL COMPUTING SOFTWARE ENGINEER Office Visit [facility] - Geriatrics [address] [place] [phone] Clara Simmons MD [address] [place] [phone] 10/07/2025 10:00 AM CDT Office Visit [facility] - Ophthalmology [address] [place] [phone] documented as of this encounter Goals Goal [...] documented as of this encounter Care Teams Public Health Advisor Relationship Specialty Start Date End Date Elen Lindquist, CARD PROCESSING CLERK-FOOD SERVICES MANAGER PCP - General 06/02/20 08/19/24 Clara Simmons MD [address] [place] [id number] PCP - General Internal Medicine Geriatric Medicine 08/20/24 documented as of this encounter
--- OUTSIDE RECORDS SUMMARY | 2025-02-17 09:23 | XMS_ITS | Encounter Summary ---
Author Organization [facility] Address [address] [place] [address] Care Team Providers Care Sales Development Director Name Role Phone Adelina Barrera MD Primary Care Provider Adelina Barrera MD Primary Care Provider Encounter Details Date Type Department Care Team (Late st Contact Info) Description 09/03/2013 Ancillary Orders [facility] Reference Laboratory [facility] [address] [facility] [place] [address] Leda Ralph, CAR[place] NO ADDRESS ON FILE Social History Tobacco Use Types Packs/Day Years Used Date Smoking Tobacco: Never Alcohol Use Standard Drinks/Week Comments No 0 (1 standard drink = 0.6 oz pur e alcohol) Comments Unknown Sex and Gender Information Value Date Recorded Sex Assigned at Not on file 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
--- OUTSIDE RECORDS SUMMARY | 2025-02-17 09:23 | XMS_ITS | Encounter Summary ---
Author Organization [facility] Address [address] [place] [address] Care Team Providers Care Director Of Coding Name Role Phone Adelina Barrera MD Primary Care Provider [phone] Adelina Barrera MD Primary Care Provider Encounter Details Date Type Department Care Team (Late st Contact Info) Description 09/15/2013 Ancillary Orders [facility] Internal Medicine Physician Susana [address] [facility] [place] [phone] Leda Ralph APRN NO ADDRESS ON FILE Osteoporosis, unspecified (Primary Dx) Social History Tobacco Use Types Packs/Day Years Used Date Smoking Tobacco: Never Alcohol Use Standard Drinks/Week Comments No 0 (1 standard drink = 0.6 oz pur e alcohol) Comments Unknown Sex and Gender Information Value Date Recorded Sex Assigned at Not on file 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 Please see related order for final interpretation. Procedure Note Julianne Fuentes MD - 09/15/2013 This is order information only. Please see related order for finalinterpretation. us Leda Ralph ENVIRONMENTAL SERVICES ATTENDANT DIAGNOSTIC IMAGING ORDERABL ES Final Result documented in this encounter Visit Diagnoses Diagnosis Osteoporosis, unspecified- Primary documented in this encounter Care Teams Director Of Coding Relationship Specialty Start Date End Date Adelina Barrera MD PCP - General Internal Medicine 10/26/13 02/17/14 Adelina Barrera MD PCP - General Internal Medicine 04/20/14 04/30/17 documented as of this encounter
--- OUTSIDE RECORDS SUMMARY | 2025-02-17 09:23 | XMS_ITS | Encounter Summary ---
Author Organization [facility] Address [address] [facility] [place] [address] Care Team Providers Care Nurse Leader Name Role Phone Clara Simmons MD Primary Care Provider [phone] Encounter Details Date Type Department Care Team (Late st Contact Info) Description 12/28/2024 Telephone [facility] [address] [facility] [phone] Clara Simmons MD [address] [place] [phone] Social History Tobacco Use Types Packs/Day Years [...] Entry Date Author No 06/09/2023 2:13 PM Veriot Reeves RN documented in this encounter Miscellaneous Notes * Telephone Encounter - Geno Mars - 12/28/2024 10:46 AM CDT Current Provider: Dr. Simmons Reason for Call: Ms. Reina Carlson is not feeling well and she has a timeline to submit papers filled out for her, could the office please mail them to her. They are in a yellow envelope. Please mail to her TONA. Please call her when they have been mailed, she has to meet a deadline. Appreciation. Patient Call Back Number: [phone] documented in this encounter Plan of Treatment Upcoming Encounters Date Type Department Care Team (Late st Contact Info) Description 05/24/2025 3:30 PM HOME EXTENSION AGENT [facility] - Geriatrics [address] [place] [phone] Clara Simmons MD [address] [place] [phone] 10/07/2025 10:00 AM CDT Office Visit [facility] - Ophthalmology [address] [place] [phone] documented as of this encounter Goals Goal [...] on filedocumented in this encounter Care Teams Nurse Leader Relationship Specialty Start Date End Date Clara Simmons MD [address] [place] [phone] PCP - General Internal Medicine Geriatric Medicine 08/20/24 documented as of this encounter
--- OUTSIDE RECORDS SUMMARY | 2025-02-17 09:23 | XMS_ITS | Encounter Summary ---
Author Organization [facility] Address [address] [place] [address] Care Team Providers Care Scene Shifter Name Role Phone Adelina Barrera MD Primary Care Provider [phone] Adelina Barrera MD Primary Care Provider [phone] Encounter Details Date Type Department Care Team (Late st Contact Info) Description 10/28/2013 Ancillary Orders [facility] Laboratory Services Physician Susana [address] 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
--- OUTSIDE RECORDS SUMMARY | 2025-02-17 09:24 | XMS_ITS | Clinical Summary ---
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 complications were discussed with the patient. Attending Participation: I was present and participated during the entire procedure, including non-oshea portions. Procedure Code(s): --- Professional --- 03925, Colonoscopy, flexible; with removal of tumor(s), polyp(s), or other lesion(s) by snare technique Diagnosis Code(s): --- Professional --- Z12.11, Encounter for screening for malignant neoplasm of colon D12.5, Benign neoplasm of sigmoid colon K64.0, First degree hemorrhoids K57.30, Diverticulosis of large intestine without perforation or abscess without bleeding CPT copyright 2021 [employer]. All rights reserved. The codes documented in this report are preliminary and upon outpatient coder review may be revised to meet current compliance requirements. Jose Roberto Paredes MD 06/09/2023 2:08:58 PM This report has been signed electronically. Note Initiated On: 06/09/2023 1:26 PM Number of Addenda: [address] [id number] [facility] 06/09/2023 1:26 PM FLIGHT KITCHEN MANAGER Jose Roberto Paredes MD GI PROCEDURE ORDERABLES Edited Result - Final [facility] * HIV-1 HIV-2 ANTIBODY + HIV P24 AG PANEL (04/20/2021 1:25 PM FLIGHT KITCHEN MANAGER) HIV1/2 Ab + P24 Ag Non Reactive Non Reactive 04/20/2021 3:10 PM FLIGHT KITCHEN MANAGER [facility] Blood BLOOD SPECIMEN / Unknown Venipuncture / Unknown 04/20/2021 1:25 PM FLIGHT KITCHEN MANAGER 04/20/2021 2:12 PM FLIGHT KITCHEN MANAGER Narrative [facility] - 04/20/2021 3:10 PM FLIGHT KITCHEN MANAGER No Laboratory evidence of HIV infection. us Triny Yoder MD LAB - CHEMISTRY ORDERABLE S Final Result [facility] [address] [place] [address] from Last 3 Months or Most Recently Relevant to Health Maintenance Insurance * Guarantor: Reina Carlson Account Type Relation to Patient Date of Phone Billing Address Personal/Family Self [address] [place] [address] [facility] MANAGED MEDICARE ADV [address] [facility] [address] [place] [id number] [facility] MANAGED MEDICARE ADV * Guarantor: Reina Carlson Account Type Relation to Patient Date of Phone Billing Address Personal/Family Self 1960 [address] [facility] [address] [place] [address] Care Teams Electroplater Automatic Relationship Specialty Start Date End Date Clara Simmons MD [address] [place] [phone] PCP - General Internal Medicine Geriatric Medicine 08/20/24
--- OUTSIDE RECORDS SUMMARY | 2025-02-17 09:24 | XMS_ITS | Encounter Summary ---
Author Organization [facility] Address [address] [place] [address] Care Team Providers Care Unindentured Apprentice Name Role Phone Elen Lindquist Primary Care Provider Clara Simmons MD Primary Care Provider [phone] Encounter Details Date Type Department Care Team (Late st Contact Info) Description 05/06/2022 Telephone [facility] [address] [facility], [place] [address] Elen Lindquist APRN-CNP [address] [place] [phone] Social History Tobacco Use Types Packs/Day [...] * Telephone Encounter - Geno Mars - 05/06/2022 11:56 AM CST Current Provider name: Elen Lindquist PHARMACY OPERATIONS COORDINATOR Reason for call: Ms. Reina Carlson had COVID three weeks ago and has recovered. Her Employer wouldlike her to have a FLU shot and she doesn't want to have a FLU shot, she has documents from her jobthat need to be signed and faxed back over. Please return as soon as she faxes them over. Heads up call. Patient Call Back number: [phone] WEAVER documented in this encounter Plan of Treatment Upcoming Encounters Date Type Department Care Team (Late st Contact Info) Description 05/24/2025 3:30 PM MAT WEAVER Office Visit [facility] Ger[facility]s [address] [place] [phone] Clara Simmons MD [address] [place] [address] 10/07/2025 10:00 AM CDT Office Visit [facility] Op[facility]mology [address] [place] [phone] documented as of this encounter Goals Goal Patient Goal Type Associated Problems Recent Progress Patient-Stated? Author Medication Management General On track( 8:53 AM CDT) Norma Okeefe, RN Note: [...] documented as of this encounter Care Teams Unindentured Apprentice Relationship Specialty Start Date End Date Elen Lindquist APRN-CRAWLER TRACTOR OPERATOR PCP - General 06/02/20 08/19/24 Clara Simmons MD [address] [place] [address] [place] [address] PCP - General Internal Medicine Geriatric Medicine 08/20/24 documented as of this encounter
--- OUTSIDE RECORDS SUMMARY | 2025-02-17 09:24 | XMS_ITS | Encounter Summary ---
Author Organization [facility] Address [address] [place] [address] Care Team Providers Care Blockman Name Role Phone Elen Lindquist APRNHEMALATHA Primary Care Provider Clara Simmons MD Primary Care Provider [phone] Encounter Details Date Type Department Care Team (Late st Contact Info) Description 05/17/2022 Telephone [facility] [address] [facility], [place] [address] Elen Lindquist APRN-CNP [address] [place] [phone] Social History Tobacco Use Types Packs/Day [...] * Telephone Encounter - Geno Mars - 05/17/2022 10:16 AM CST Patient called in requesting a Med refill. Drug type: Vitamin D Baby Aspirin (Didn't see it in chart, pt didn't have bottle) Pharmacy: [id number] [phone] Patient call back number: . [phone] EL PLANER documented in this encounter Plan of Treatment Upcoming Encounters Date Type Department Care Team (Late st Contact Info) Description 05/24/2025 3:30 PM BARREL PLANER Office Visit [facility] [address] [place] [phone] Clara Simmons MD [address] [place] [address] 10/07/2025 10:00 AM CDT Office Visit [facility] Ophthalmology [address] [place] [phone] documented as of this encounter Goals Goal [...] documented as of this encounter Care Teams Blockman Relationship Specialty Start Date End Date Elen Lindquist APRN-IN HOME SALES CONSULTANT PCP - General 06/02/20 08/19/24 Clara Simmons MD [address] [place] [phone] PCP - General Internal Medicine Geriatric Medicine 08/20/24 documented as of this encounter
--- OUTSIDE RECORDS SUMMARY | 2025-02-17 09:24 | XMS_ITS | Encounter Summary ---
Author Organization [facility] Address [address] [place] [address] Care Team Providers Care Bell Tier Name Role Phone Elen Lindquist APRN-HEMALATHA Primary Care Provider Clara Simmons MD Primary Care Provider [phone] Encounter Details Date Type Department Care Team (Late st Contact Info) Description 05/16/2022 Telephone [facility] [address] [place] [address] Elen Lindquist APRN-CNP [address] [phone] Social History Tobacco Use Types Packs/Day [...] encounter Miscellaneous Notes * Telephone Encounter - Mark Hill - 05/16/2022 3:56 PM CST Ms. Mars called stating that she has attempted to get a flu shot from a walk- in clinic and has been turned away. She states that she has tried [facility] and [facility] and that they will not provide her with a shot unless she makes an appt online- which she says she can't do. She would like to come in to get her vaccine (which I was advised is not a service we provide) She requests a return call to advise. [phone] TION PROJECT ENGINEER documented in this encounter Plan of Treatment Upcoming Encounters Date Type Department Care Team (Late st Contact Info) Description 05/24/2025 3:30 PM AVIATION PROJECT ENGINEER Office Visit [facility] [address] [place] [phone] Clara Simmons MD [address] [place] [phone] 10/07/2025 10:00 AM CDT Office Visit [facility] - Ophthalmology [address] [place] [phone] documented as of this encounter Goals Goal [...] documented as of this encounter Care Teams Bell Tier Relationship Specialty Start Date End Date Elen Lindquist APRN-ELECTRICAL UNIT REBUILDER PCP - General 06/02/20 08/19/24 Clara Simmons MD [address] [place] [address], [place] [address] PCP - General Internal Medicine Geriatric Medicine 08/20/24 documented as of this encounter
--- OUTSIDE RECORDS SUMMARY | 2025-02-17 09:24 | XMS_ITS | Encounter Summary ---
Author Organization [facility] Address [address] [facility] [place] [address] Care Team Providers Care Ios Developer Name Role Phone Elen Lindquist APRN-ELASTIC ATTACHER OVERLOCK Primary Care Provider Clara Simmons MD Primary Care Provider [phone] Encounter Details Date Type Department Care Team (Late st Contact Info) Description 04/30/2022 Telephone [facility] [address] [place] [address] Sarah Gonzalez MD [address] [place] [phone] Social History Tobacco Use Types Packs/Day Years [...] * Telephone Encounter - Mark Hill - 05/02/2022 10:17 AM CST I have changed her to a VID visit for 06/04@ 3:40 ND PRODUCTS DIRECTOR * Telephone Encounter - Mark Hill - 04/30/2022 3:21 PM CST Reina called to inquire as to the nature of the appt scheduled for 06/04/2022. She would like to know if this is for an infusion or bone density test or simply a follow up? If not necessary to be seen in person she would like to know if it is possible for this to be a tele-med visit? Verified# [id number] ND PRODUCTS DIRECTOR documented in this encounter Plan of Treatment Upcoming Encounters Date Type Department Care Team (Late st Contact Info) Description 05/24/2025 3:30 PM GROUND PRODUCTS DIRECTOR Office Visit [facility] - Ger[facility]s [address] [place] [phone] Clara Simmons MD [address] [place] [phone] 10/07/2025 10:00 AM CDT Office Visit [facility] - Ophthalmology [address] [place] [phone] documented as of this encounter Goals Goal [...] documented as of this encounter Care Teams Ios Developer Relationship Specialty Start Date End Date Elen Lindquist, TECHNICAL COMMUNICATION TEACHER-ELASTIC ATTACHER OVERLOCK PCP - General 06/02/20 08/19/24 Clara Simmons MD [address] [place] [address] PCP - General Internal Medicine Geriatric Medicine 08/20/24 documented as of this encounter
--- OUTSIDE RECORDS SUMMARY | 2025-02-17 09:24 | XMS_ITS | Encounter Summary ---
Author Organization [facility] Address [address] [place] [address] Care Team Providers Care Md Allergy Immunology Name Role Phone Elen Lindquist APRNHEMALATHA Primary Care Provider Clara Simmons MD Primary Care Provider [phone] Encounter Details Date Type Department Care Team (Late Contact Info) Description 09/25/2021 Telephone [facility] [address] [place] [address] Elen Lindquist APRN-CNP [address] [place] [phone] Social History Tobacco Use Types Packs/Day Years Used Date Smoking Tobacco: Some Days Cigarettes Smokeless Tobacco: Never Comments:socially Alcohol Use Standard Drinks/Week Comments Yes 2 (1 standard drink = 0.6 oz pur e alcohol) PHQ-2 Answer Date Recorded PHQ2 TOTAL SCORE 0 08/10/2021 Comments No Sex and Gender Information Value Date Recorded Sex Assigned at Not on file Legal Sex Female 11:25 AM CDT Gender Identity Not on file Sexual Orientation Not on file documented as of this encounter Plan of Treatment Upcoming Encounters Date Type Department Care Team (Late Contact Info) Description 05/24/2025 3:30 PM AUDITOR INTERNAL Office Visit [facility] - Geriatrics [address] [place] [phone] Clara Simmons MD [address] [place] [phone] 10/07/2025 10:00 AM CDT Office Visit [facility] Op[facility] [address] [place] [phone] documented as of this encounter Goals Goal [...] documented as of this encounter Care Teams Md Allergy Immunology Relationship Specialty Start Date End Date Elen Lindquist, LEAD REFINER-OUTBOUND SUPERVISOR PCP - General 06/02/20 08/19/24 Clara Simmons MD [address] [place] [phone] PCP - General Internal Medicine Geriatric Medicine 08/20/24 documented as of this encounter
--- NOTE | 2025-02-17 09:40 | ED.GENADULT ---
HPI - General Adult General Chief complaint: Abdominal Pain Stated complaint: constipation 2-4 weeks abdominal pain Time Seen by Provider: 02/17/25 09:24 History of Present Illness HPI narrative: 64-year-old female present to the emergency department for evaluation for 2 weeks of constipation. Patient has been taking senna with no improvement. Patient has no prior history of constipation. Patient does report left lower quadrant abdominal tenderness. Patient is anxious because she was going on a trip to [place] and then to [place] with her mother and patient is concerned that she may have worsening health issues and wanted to be evaluated. Related Data Home Medications ?Medication ?Instructions ?Recorded ?Confirmed ?Last Taken ?Type ergocalciferol (vitamin D2) 1,250 1,250 mcg PO WEEKLY 12/10/19 02/17/25 Unknown History mcg (50,000 unit) capsule aspirin 81 mg tablet,delayed 81 mg PO DAILY 11/09/20 02/17/25 Unknown History release thiamine HCl (vitamin B1) 100 mg 100 mg PO DAILY 09/15/23 02/17/25 Unknown History tablet buspirone 5 mg tablet 5 mg PO DAILY 02/17/25 02/17/25 Unknown History Allergies Allergy/AdvReac Type Severity Reaction Status Date / Time Penicillins Allergy Mild Rash Verified 02/17/25 09:19 Review of Systems Review of Systems: All systems reviewed & are unremarkable except as noted in HPI and below PMFSH Past Medical History Medical History Depression Low vitamin D level Mini stroke Sensorineural hearing loss, bilateral Tinnitus, right ear Surgical History Surgical History No significant past surgical history Family History Family History Father , Reina reports was related to COVID-19 Hypertension COVID-19 Mother Unknown family medical history Social History Social History Smoking status: Never smoker Tobacco type: cigarettes Second hand tobacco smoke exposure: No Alcohol intake: current Alcohol use details: socially Substance use: never Substance use type: does not use Living arrangements: with family Occupation/Education: unemployed Gender identity (if verbalized by the patient): Female Exam Narrative: APPEARANCE: Well appearing, no pain, no distress, well-nourished. HEAD: normocephalic, atraumatic. EYES: PERRLA/EOMI, conjunctivae clear. NOSE: Normal no drainage EARS:TMS clear with good light reflex. THROAT: Pharynx clear, no exudate. NECK: Supple. No adenopathy, no masses. RESPIRATORY: Airway patent, respirations nonlabored. Clear to auscultation bilaterally, no rales, rhonchi, wheezing. CARDIOVASCULAR: Regular rate and rhythm without murmurs rubs or gallops. ABDOMINAL: Left lower quadrant tenderness to palpation MUSCULOSKELETAL: Moves all extremities. Strength/ROM intact, No edema, No calf tenderness. NEURO: Alert. Cranial nerves II through XII intact. Good gait. Good coordination SKIN: Warm, dry. Normal Color Course Vital Signs Vital signs: Vital Signs Temperature 97.6 F 02/17/25 09:14 Pulse Rate 65 02/17/25 09:14 Respiratory Rate 16 02/17/25 09:14 Blood Pressure 101/61 02/17/25 09:14 Pulse Oximetry 98 02/17/25 09:14 Oxygen Delivery Room Air 02/17/25 09:14 Temperature 97.6 F 02/17/25 09:14 Pulse Rate 65 02/17/25 09:14 Respiratory Rate 20 02/17/25 11:28 Blood Pressure 101/61 02/17/25 09:14 Pulse Oximetry 98 02/17/25 09:14 Oxygen Delivery Room Air 02/17/25 09:14 Medical Decision Making [facility] Narrative Medical decision making narrative: 64-year-old female presents to the emergency department for evaluation for left lower quadrant abdominal pain. Patient is afebrile with no leukocytosis hemoglobin of 13.8. Patient has an INR of 1.0. Patient does have mild elevation AST ALT but normal T bili alk-phos. UA was negative for infection. CT scan did show evidence uncomplicated diverticulitis. Patient was started on Cipro and Flagyl in the emergency department. Patient was discharged home with Cipro and Flagyl. Patient was concerned because she is supposed to leave on a trip in approximately 10 days. Patient was concerned that she may not have fully recovered from her diverticulitis. Patient was told to have close follow-up with primary care physician. Patient is also educated on reasons to return to the emergency department. Differential Diagnosis Differential Diagnosis: Colitis, diverticulitis, appendicitis, bowel obstruction, ureteral calculi, UTI Vital Signs Vital Signs: Vital Signs Temperature 97.6 F 02/17/25 09:14 Pulse Rate 65 02/17/25 09:14 Respiratory Rate 16 02/17/25 09:14 Blood Pressure 101/61 02/17/25 09:14 Pulse Oximetry 98 02/17/25 09:14 Oxygen Delivery Room Air 02/17/25 09:14 Temperature 97.6 F 02/17/25 09:14 Pulse Rate 65 02/17/25 09:14 Respiratory Rate 20 02/17/25 11:28 Blood Pressure 101/61 02/17/25 09:14 Pulse Oximetry 98 02/17/25 09:14 Oxygen Delivery Room Air 02/17/25 09:14 Lab Data Lab results reviewed: Yes I reviewed the patient's lab results. 02/17/25 09:48 02/17/25 09:48 Labs: Lab Results 02/17/25 Range/Units 09:48 WBC 7.7 (4.5-10.0) K/mm3 RBC 4.54 (4.2-5.4) M/mm3 Hgb 13.8 (12.0-15.0) g/dL Hct 41.3 (37.0-47.0) % MCV 91.0 (80-100) fl MCH 30.4 (26-34) pg MCHC 33.4 (32-36) g/dl RDW 13.2 (11.5-14.5) % Plt Count 261 (150-375) k/mm3 MPV 9.9 (7.4-10.4) fl Immature Gran % (Auto) 0.4 (0-0.5) % Neut % (Auto) 77.0 H (45.5-73.1) % Lymph % (Auto) 15.3 L (18.3-44.2) % Carbon % (Auto) 5.8 (2.6-8.5) % Eos % (Auto) 1.0 (0-4.4) % Baso % (Auto) 0.5 (0.2-1.2) % Lymph # (Auto) 1.18 (0.9-3.2) K/mm3 Carbon # (Auto) 0.5 (0.1-0.6) K/mm3 Eos # (Auto) 0.1 (0-0.3) K/mm3 Baso # (Auto) 0.0 (0.0-0.1) K/mm3 Abs Immat Gran (auto) 0.03 (0.00-0.031) K/mm3 Absolute Neuts (auto) 5.9 (1.3-6.7) K/mm3 Absolute Nucleated RBC 0.000 (0.0-0.012) K/mm3 Nucleated RBC % 0.0 (0.0-0.2) % PT 13.3 (11.1-14.7) Seconds INR 1.0 APTT 33.5 (22.3-36.8) Seconds Sodium 136 L (137-145) mmol/L Potassium 4.3 (3.4-5.0) mmol/L Chloride 105 (98-107) mmol/L Carbon Dioxide 25 (22-30) mmol/L Anion Gap 6 (4-12) mmol/L BUN 9 (7-17) mg/dL Creatinine 0.55 L (0.7-1.0) mg/dL Estim Creat Clear Calc Not Reportable Estimated GFR > 60 (59 - ) Glucose 118 H (65-110) mg/dL Lactic Acid 0.8 (0.7-2.0) mmol/L Calcium 8.9 (8.4-10.2) mg/dL Total Bilirubin 0.9 (0.2-1.3) mg/dL AST 38 H (14-36) U/L ALT 53 H (6-35) U/L Alkaline Phosphatase 65 (38-126) U/L Total Protein 7.9 (6.3-8.2) g/dL Albumin 4.2 (3.5-5.1) g/dL Urine Color Yellow (Yellow) Urine Appearance Clear (Clear) Urine pH 7.5 (5.0-9.0) Ur Specific Egnar 1.016 (1.001-1.035) Urine Protein Negative (Negative) mg/dL Urine Glucose (UA) Negative (Negative) mg/dL Urine Ketones Negative (Negative) mg/dL Ur Blood (Man) Negative (Negative) Urine Nitrate Negative (Negative) Urine Bilirubin Negative (Negative) Urine Urobilinogen 0.2 (<2.0) mg/dL Leukocyte Esterase Rfl Negative (Negative) CHIQUI/UL Imaging Data Radiologist's impression: Impressions Abdomen/Pelvis CT 02/17/25 10:54 IMPRESSION: 1. Acute sigmoid diverticulitis. No perforation or abscess. Discharge Plan Discharge Clinical Impression: Diverticulitis Patient Disposition: Home Condition: Stable Instructions: Antibiotic Form, Diverticulitis (DC), Clear Liquid Diet (ED), Abdominal Pain (ED) Additional Instructions: Clear liquid diet for the next 1-3 days, advance to a bland diet as tolerated. Antibiotic as directed until completed. Have close follow-up with your primary care physician. Patient Language: Algerian Prescriptions: New metronidazole 500 mg tablet 500 mg PO Q12H 7 Days Qty: 14 0RF ciprofloxacin HCl [Cipro] 500 mg tablet 500 mg PO Q12H 7 Days Qty: 14 0RF No Action aspirin 81 mg tablet,delayed release (DR/EC) 81 mg PO DAILY thiamine HCl (vitamin B1) 100 mg tablet 100 mg PO DAILY buspirone 5 mg tablet 5 mg PO DAILY ergocalciferol (vitamin D2) 1,250 mcg (50,000 unit) capsule 1,250 mcg PO WEEKLY Follow-up/Referrals: PHYSICIAN NOT ON STAFF,NONSTAFF [Non-Staff]
[2025-02-17 09:56] LABS: Hematocrit 41.3 % (37.0-47.0); Hemoglobin 13.8 g/dL (12.0-15.0); Immature Granulocyte Percent A 0.4 % (0-0.5); Lymphocytes Absolute Auto 1.18 K/mm3 (0.9-3.2); Mean Corpuscular HGB Conc 33.4 g/dl (32-36); Mean Corpuscular Hemoglobin 30.4 pg (26-34); Mean Corpuscular Volume 91.0 fl (80-100); Nucleated Red Blood Cells Absolute Auto 0.000 K/mm3 (0.0-0.012); Nucleated Red Blood Cells Perc 0.0 % (0.0-0.2); Platelet Count Result 261 k/mm3 (150-375); Red Blood Count 4.54 M/mm3 (4.2-5.4); White Blood Count 7.7 K/mm3 (4.5-10.0)
[2025-02-17 09:58] LABS: Add Urine Microscopic? NO; Appearance Urine Clear (Clear); Glucose Urine UA Negative (Negative); Leukocyte Esterase Ur Negative LEU/UL (Negative); Nitrate Urine Negative (Negative); Specific Grav Ur 1.016 (1.001-1.035)
[2025-02-17 10:07] LABS: INR 1.0; Prothrombin Time 13.3 Seconds (11.1-14.7)
[2025-02-17 10:08] LABS: Partial Thromboplastin Time 33.5 Seconds (22.3-36.8)
[2025-02-17 10:17] LABS: Alanine Aminotransferase 53 U/L (6-35); Albumin Level 4.2 g/dL (3.5-5.1); Alkaline Phosphatase 65 U/L (38-126); Anion Gap 6 mmol/L (4-12); Aspartate Amino Transferase 38 U/L (14-36); Bilirubin,Total 0.9 mg/dL (0.2-1.3); Blood Urea Nitrogen 9 mg/dL (7-17); Calcium 8.9 mg/dL (8.4-10.2); Carbon Dioxide 25 mmol/L (22-30); Chloride 105 mmol/L (98-107); Estimated Glomerular Filt Rate > 60; Glucose 118 mg/dL (65-110); Potassium 4.3 mmol/L (3.4-5.0); Sodium 136 mmol/L (137-145); Total Protein 7.9 g/dL (6.3-8.2)
--- OUTSIDE RECORDS SUMMARY | 2025-02-17 10:25 | XMS_ITS | Encounter Summary ---
Author Organization [facility] Address [address] [place] [address] Care Team Providers Care Hr Payroll Coordinator Name Role Phone Adelina Barrera MD Primary Care Provider Adelina Barrera MD Primary Care Provider Encounter Details Date Type Department Care Team (Late st Contact Info) Description 09/15/2013 Ancillary Orders [facility] Internal Medicine Physician Susana [address] [facility] [place] [phone] Leda Ralph APRN NO ADDRESS ON FILE Osteoporosis, unspecified (Primary Dx) Social History Tobacco Use Types Packs/Day Years Used Date Smoking Tobacco: Never Alcohol Use Standard Drinks/Week Comments No 0 (1 standard drink = 0.6 oz pur e alcohol) Comments Unknown Sex and Gender Information Value Date Recorded Sex Assigned at Not on file Legal Sex Female 6:20 AM MARKETING INTERN Gender Identity Not on file Sexual Orientation [...] related order for finalinterpretation. us Leda Ralph CONSTRUCTION ADMINISTRATIVE ASSISTANT DIAGNOSTIC IMAGING ORDERABL ES Final Result documented in this encounter Visit Diagnoses Diagnosis Osteoporosis, unspecified- Primary documented in this encounter Care Teams Hr Payroll Coordinator Relationship Specialty Start Date End Date Adelina Barrera MD PCP - General Internal Medicine 10/26/13 02/17/14 Adelina Barrera MD PCP - General Internal Medicine 04/20/14 04/30/17 documented as of this encounter
--- OUTSIDE RECORDS SUMMARY | 2025-02-17 10:25 | XMS_ITS | Encounter Summary ---
Author Organization [facility] Address [address] [place] [address] Care Team Providers Care Experimental Flight Test Mechanic Name Role Phone Adelina Barrera MD Primary Care Provider Adelina Barrera MD Primary Care Provider Encounter Details Date Type Department Care Team (Late st Contact Info) Description 10/28/2013 Ancillary Orders [facility] General Laboratory Services [address] [facility] [place] [phone] Adelina Barrera MD [address] [facility] [address] [place] [phone] Social History Tobacco Use Types Packs/Day Years Used Date Smoking Tobacco: Never Alcohol Use Standard Drinks/Week Comments No 0 (1 standard drink = 0.6 oz pur e alcohol) Comments No Sex and Gender Information Value Date Recorded Sex Assigned at Not on file Legal Sex Female 6:20 AM CONTRACTOR GENERAL ENGINEERING Gender Identity Not on file Sexual Orientation Not on file documented as of this encounter Plan of Treatment Not on file documented as of this encounter Visit Diagnoses Not on filedocumented in this encounter Care Teams Experimental Flight Test Mechanic Relationship Specialty Start Date End Date Adelina Barrera MD PCP - General Internal Medicine 10/26/13 02/17/14 Adelina Barrera MD PCP - General Internal Medicine 04/20/14 04/30/17 documented as of this encounter
--- OUTSIDE RECORDS SUMMARY | 2025-02-17 10:25 | XMS_ITS | Encounter Summary ---
Author Organization [facility] Address [address] [place] [address] Care Team Providers Care Voice Network Engineer Name Role Phone Elen Lindquist Primary Care Provider Clara Simmons MD Primary Care Provider [phone] Encounter Details Date Type Department Care Team (Late Contact Info) Description 04/15/2023 Telephone [facility] - Centralized Scheduling [address] [place] [phone] Elen Lindquist APRN-CNP [address] [place] [phone] Social History Tobacco Use Types Packs/Day Years [...] (Late Contact Info) Description 05/24/2025 3:30 PM BLOW MACHINE TENDER STARCH SPRAYING Office Visit [facility] - Geriatrics [address] [place] [phone] Clara Simmons MD [address] [place] [address] 10/07/2025 10:00 AM CDT Office Visit [facility] - Ophthalmology [address] [place] [phone] documented as of this encounter Goals Goal [...] documented as of this encounter Care Teams Voice Network Engineer Relationship Specialty Start Date End Date Elen Lindquist, NUMERICAL CONTROL MACHINE TOOL OPERATOR-AUSTRALIAN RULES FOOTBALLER PCP - General 06/02/20 08/19/24 Clara Simmons MD [address] [place] [address] PCP - General Internal Medicine Geriatric Medicine 08/20/24 documented as of this encounter
--- OUTSIDE RECORDS SUMMARY | 2025-02-17 10:25 | XMS_ITS | Clinical Summary ---
Author Organization [facility] Address [address] [place] [address] Care Team Providers Care Arrow Point Attacher Name Role Phone Unavailable Primary Care Provider [...]
--- OUTSIDE RECORDS SUMMARY | 2025-02-17 10:25 | XMS_ITS | Encounter Summary ---
Author Organization [facility] Address [address] [place] [address] Care Team Providers Care Wallpaper Installer Name Role Phone Clara Simmons MD Primary Care Provider [phone] Encounter Details Date Type Department Care Team (Late st Contact Info) Description 12/28/2024 Telephone [facility] Geriatrics [address] [facility] [place] [phone] Clara Simmons MD [address] [place] [address] Social History Tobacco Use Types Packs/Day Years [...] a yellow envelope. Please mail to her TOAN. Please call her when they have been mailed, she has to meet a deadline. Appreciation. Patient Call Back Number: [phone] documented in this encounter Plan of Treatment Upcoming Encounters Date Type Department Care Team (Late st Contact Info) Description 05/24/2025 3:30 PM SURVEYING TEACHER Office [facility] - Geriatrics [address] [place] [phone] Clara Simmons MD [address] [place] [address] 10/07/2025 10:00 AM CDT Office Visit [facility] - Ophthalmology [address] [place] [phone] documented as of this encounter Goals Goal [...] on filedocumented in this encounter Care Teams Wallpaper Installer Relationship Specialty Start Date End Date Claar Simmons MD [address] [place] [address] PCP - General Internal Medicine Geriatric Medicine 08/20/24 documented as of this encounter
--- OUTSIDE RECORDS SUMMARY | 2025-02-17 10:25 | XMS_ITS | Clinical Summary ---
Author Organization [facility] Address [address] [place] [address] Phone Care Team Providers Care Airline Attendant Name Role Phone Paresh Deng MD Primary Care Provider [phone] Medications hydrOXYzine (VISTARIL) 100 MG Capsule Take [...] Improving( 3:38 PM CDT) Yes Cathi Duval, BEHAVIOR INTERVENTIONIST Note: to have reduction of anxiety and depression symptoms. Goal Reviewed with: patient today Readiness to change: Making a change Department associated with goal: [facility] Steps to achieve goal: [...] Insurance MEDICAID [employer] Care Teams Airline Attendant Relationship Specialty Start Date End Date Paresh Deng MD [address] [place] [address] PCP - General Family Medicine 04/23/18
--- OUTSIDE RECORDS SUMMARY | 2025-02-17 10:25 | XMS_ITS | Encounter Summary ---
Author Organization [facility] Address [address] [facility] [address] Care Team Providers Care Web Operations Specialist Name Role Phone Clara Simmons MD Primary Care Provider [phone] Reason for Referral * Radiology Services (Routine) - Open Specialty Diagnoses / Procedures Referred By Contac t Referred To Contact Ultrasound Diagnoses PMB (postmenopausal bleeding) Procedures US Pelvis W Transvag Non Ob Chen Ballard MD [address] [place] [address] Phone: tel: fax: Referral ID Status Reason Start Date Expiration Date Visits Re quested Visits Authorized [id number] Open 10/27/2024 10/27/2025 1 1 Reason for Visit * Reason Onset Date Comments Nurse Only 10/27/2024 Encounter Details Date Type Department Care Team (Late st Contact Info) Description 10/27/2024 Telephone [facility] - UPPER EXTREMITY SURGEON [address] [place] [address] Chen Ballard MD [address] [place] [address] Nurse Only Social History Tobacco [...] her US scheduled she left number for [facility] documented in this encounter Plan of Treatment Upcoming Encounters Date Type Department Care Team (Late st Contact Info) Description 05/24/2025 3:30 PM FENCE INSTALLER HELPER Office Visit [facility] - Geriatrics [address] [place] [phone] Clara Simmons MD [address] [place] [address] 10/07/2025 10:00 AM CDT Office Visit [facility] - Ophthalmology [address] [place] [phone] Scheduled Orders Name Type Priority Associated Diagnoses [...] bleeding documented in this encounter Care Teams Web Operations Specialist Relationship Specialty Start Date End Date Clara Simmons MD [address] [place] [address] PCP - General Internal Medicine Geriatric Medicine 08/20/24 documented as of this encounter
--- OUTSIDE RECORDS SUMMARY | 2025-02-17 10:26 | XMS_ITS | Encounter Summary ---
Author Organization [facility] Address [address] [place] [address] Care Team Providers Care Office Machine Repair Shop Supervisor Name Role Phone Adelina Barrera MD Primary Care Provider Adelina Barrera MD Primary Care Provider Encounter Details Date Type Department Care Team (Late st Contact Info) Description 10/28/2013 Ancillary Orders [facility] Reference Laboratory [facility] [address] [facility] [place] [address] Adelina Barrera MD [address] [facility] [address] [place] [phone] Social History Tobacco Use Types Packs/Day Years Used Date Smoking Tobacco: Never Alcohol Use Standard Drinks/Week Comments No 0 (1 standard drink = 0.6 oz pur e alcohol) Comments No Sex and Gender Information Value Date Recorded Sex Assigned at Not on file Legal Sex Female 6:20 AM SIZE TESTER Gender Identity Not on file Sexual Orientation Not on file documented as of this encounter Plan of Treatment Not on file documented as of this encounter Visit Diagnoses Not on filedocumented in this encounter Care Teams Office Machine Repair Shop Supervisor Relationship Specialty Start Date End Date Adelina Barrera MD PCP - General Internal Medicine 10/26/13 02/17/14 Adelina Barrera MD PCP - General Internal Medicine 04/20/14 04/30/17 documented as of this encounter
--- OUTSIDE RECORDS SUMMARY | 2025-02-17 10:26 | XMS_ITS | Encounter Summary ---
Author Organization [facility] Address [address] [facility] [place] [address] Care Team Providers Care Elevator Service Technician Name Role Phone Elen Lindquist APRN-EMBROIDERY WORKER Primary Care Provider Clara Simmons MD Primary Care Provider [phone] Encounter Details Date Type Department Care Team (Late st Contact Info) Description 04/30/2022 Telephone [facility] [address] [place] [address] Sarah Gonzalez MD [address] [place] [phone] Social History Tobacco Use Types Packs/Day Years [...] to a VID visit for 06/04@ 3:40 R READER INSPECTOR * Telephone Encounter - [facility] [place] - [...] this to be a tele-med visit? Verified# [id number] R READER INSPECTOR documented in this encounter Plan of Treatment Upcoming Encounters Date Type Department Care Team (Late st Contact Info) Description 05/24/2025 3:30 PM METER READER INSPECTOR Office Visit [facility] - Geriatrics [address] [place] [phone] Clara Simmons MD [address] [place] [address] 10/07/2025 10:00 AM CDT Office Visit [facility] - Ophthalmology [address] [place] [phone] documented as of this encounter Goals Goal [...] documented as of this encounter Care Teams Elevator Service Technician Relationship Specialty Start Date End Date Elen Lindquist, VOCAL MUSIC INSTRUCTOR-EMBROIDERY WORKER PCP - General 06/02/20 08/19/24 Clara Simmons MD [address] [place] [address] PCP - General Internal Medicine Geriatric Medicine 08/20/24 documented as of this encounter
--- OUTSIDE RECORDS SUMMARY | 2025-02-17 10:26 | XMS_ITS | Encounter Summary ---
Author Organization [facility] Address [address] [place] [address] Care Team Providers Care Ton Container Filler Name Role Phone Elen Lindquist APRNHEMALATHA Primary Care Provider Clara Simmons MD Primary Care Provider [phone] Encounter Details Date Type Department Care Team (Late st Contact Info) Description 05/17/2022 Telephone [facility] [address] [facility] [place] [address] Elen Lindquist APRN-CNP [address] [place] [phone] Social History Tobacco Use Types Packs/Day [...] in chart, pt didn't have bottle) Pharmacy: [id number] [address] [facility] [phone] [facility] Patient call back number: . [phone] REGISTER MECHANIC documented in this encounter Plan of Treatment Upcoming Encounters Date Type Department Care Team (Late st Contact Info) Description 05/24/2025 3:30 PM CASH REGISTER MECHANIC Office Visit [facility] Geriatrics [address] [place] [phone] Clara Simmons MD [address] [place] [address] 10/07/2025 10:00 AM CDT Office Visit [facility] - Ophthalmology [address] [place] [phone] documented as of this encounter Goals Goal [...] documented as of this encounter Care Teams Ton Container Filler Relationship Specialty Start Date End Date Elen Lindquist APRN-TECH BRAZER TESTER PCP - General 06/02/20 08/19/24 Clara Simmons MD [address] [place] [address] PCP - General Internal Medicine Geriatric Medicine 08/20/24 documented as of this encounter
--- OUTSIDE RECORDS SUMMARY | 2025-02-17 10:26 | XMS_ITS | Encounter Summary ---
Author Organization [facility] Address [address] [place] [address] Care Team Providers Care Planograph Operator Name Role Phone Clara Simmons MD Primary Care Provider [phone] Reason for Visit * Reason Onset Date Comments Constipation 02/17/2025 Encounter Details Date Type Department Care Team (Late st Contact Info) Description 02/17/2025 Telephone [facility] Ger[facility] [address] [place] [address], [facility] [address] Clara Simmons MD [address] [place] [address] Constipation Social History Tobacco Use Types Packs/Day Years [...] encounter Miscellaneous Notes * Telephone Encounter - Jaylyn Car RN - 02/17/2025 9:56 AM CDT Received call from patient. She is currently at the ED at [facility] in [place] for constipation. She is very concerned because she is scheduled to go to [facility] (extended stay) on 02/23/25. PCP name and fax number given to staff member so reports can be sent to Dr. Simmons. All questions answered, patient voices understanding. documented in this encounter Plan of Treatment Upcoming Encounters Date Type Department Care Team (Late st Contact Info) Description 05/24/2025 3:30 PM ENDOCRINOLOGY NURSE Office Visit [facility] Ger[facility] [address] [place] [phone] Clara Simmons MD [address] [place] [address] 10/07/2025 10:00 AM CDT Office Visit [facility] - Ophthalmology [address] [place] [phone] documented as of this encounter Goals Goal [...] on filedocumented in this encounter Care Teams Planograph Operator Relationship Specialty Start Date End Date Clara Simmons MD [address] [place] [address] PCP - General Internal Medicine Geriatric Medicine 08/20/24 documented as of this encounter
--- OUTSIDE RECORDS SUMMARY | 2025-02-17 10:26 | XMS_ITS | Clinical Summary ---
Author Organization [facility] Address [address] [facility] Attn: Epic Prelude ADT [place] [address] Care Team Providers Care Brick Picker Name Role Phone Unavailable Primary Care Provider [...] on file Legal Sex Female 12:11 PM MANUFACTURING MANAGEMENT ASSOCIATE Gender Identity Not on file Sexual Orientation Not on file Last Filed Vital Signs Vital Sign Reading Time Taken Comments Blood Pressure 104/66 09/13/2015 3:01 PM CDT Pulse 82 09/13/2015 3:01 PM CDT Temperature 36.7 C (98.1 F) 07/27/2015 11:47 AM MANUFACTURING MANAGEMENT ASSOCIATE Respiratory Rate - - Oxygen Saturation - [...] to previous bilateral mammogram dated 11/15/2010 from [facility] in [place], [place]. HISTORY: Screening for breast cancer. FINDINGS: [...] to previous bilateral mammogram dated 11/15/2010 from [facility] in [place], [place]. HISTORY: Screening for breast cancer. FINDINGS: [...] mammogram in one year. us Leda Ralph RUBBING BED OPERATOR MAMMO ORDERABLES Final Resu lt * [...]
--- OUTSIDE RECORDS SUMMARY | 2025-02-17 10:26 | XMS_ITS | Clinical Summary ---
Author Organization [facility] Address [address] [facility] [place] [address] Phone Care Team Providers Care Quartz Miner Name Role Phone Unavailable Primary Care Provider [...] on file Legal Sex Female 6:20 AM FOREIGN FOOD SPECIALTY COOK Gender Identity Not on file Sexual Orientation Not on file Occupation Industry Job Start Date Job End Date Not on file Not on file Not on file Not on file Last Filed Vital Signs Vital Sign Reading Time Taken Comments Blood Pressure 104/66 09/13/2015 3:01 PM CDT Pulse 82 09/13/2015 3:01 PM CDT Temperature 36.7 C (98.1 F) 07/27/2015 11:47 AM FOREIGN FOOD SPECIALTY COOK Respiratory Rate 14 03/28/2014 1:58 PM FOREIGN FOOD SPECIALTY COOK Oxygen Saturation 95% 07/27/2015 11:47 AM FOREIGN FOOD SPECIALTY COOK ra Inhaled Oxygen Concentration - - Weight [...] to previous bilateral mammogram dated 11/15/2010 from [facility] in [place], [place]. HISTORY: Screening for breast cancer. FINDINGS: [...] to previous bilateral mammogram dated 11/15/2010 from [facility] in [place], [place]. HISTORY: Screening for breast cancer. FINDINGS: [...] 09/15/2013 Age: 53 y.o. Gender: female Equipment: [employer] Logistics Supply Officer: Nithya Quinn CDT LSC: Spine= 0.026 gm/cm [...] Assessment (VFA) Indication for exam: osteoporosis Equipment: Fromography Plus Genant s semiquantitative analysis and assessment [...] 09/15/2013 Age: 53 y.o. Gender: female Equipment: [employer] Logistics Supply Officer: Nithya Quinn CDT LSC: Spine= 0.026 gm/cm [...] at the AP L1-L4 spine. The AP L1-R2jqvrv BMD is 0.837 gm/cm . Reina Carlson [...] Assessment (VFA) Indication for exam: osteoporosis Equipment: Fision/TweetUp Plus Genant Tepha semiquantitative analysis and assessment criteria are utilizedfor [...] Advance Directives For more information, please contact: [phone] * Full Code (Latest Code Status on File) Date Activated Date Inactivated Comments 03/28/2014 11:15 AM 03/28/2014 4:03 PM
--- OUTSIDE RECORDS SUMMARY | 2025-02-17 10:26 | XMS_ITS | Encounter Summary ---
Author Organization [facility] Address [address] [place] [address] Care Team Providers Care Ship Steward Name Role Phone Adelina Barrera MD Primary Care Provider Adelina Barrera MD Primary Care Provider Encounter Details Date Type Department Care Team (Late st Contact Info) Description 10/28/2013 Ancillary Orders [facility] Laboratory Services Physician Susana [address] [facility] [place] [address] Adelina Barrera MD [address] [facility] [address] [place] [phone] Social History Tobacco Use Types Packs/Day Years Used Date Smoking Tobacco: Never Alcohol Use Standard Drinks/Week Comments No 0 (1 standard drink = 0.6 oz pur e alcohol) Comments No Sex and Gender Information Value Date Recorded Sex Assigned at Not on file Legal Sex Female 6:20 AM MULE OPERATOR Gender Identity Not on file Sexual Orientation Not on file documented as of this encounter Plan of Treatment Not on file documented as of this encounter Visit Diagnoses Not on filedocumented in this encounter Care Teams Ship Steward Relationship Specialty Start Date End Date Adelina Barrera MD PCP - General Internal Medicine 10/26/13 02/17/14 Adelina Barrera MD PCP - General Internal Medicine 04/20/14 04/30/17 documented as of this encounter
--- OUTSIDE RECORDS SUMMARY | 2025-02-17 10:26 | XMS_ITS | Encounter Summary ---
Author Organization [facility] Address [address] [place] [address] Care Team Providers Care Assembler Production Line Name Role Phone Elen Lindquist APRN-HEMALATHA Primary Care Provider Clara Simmons MD Primary Care Provider [phone] Encounter Details Date Type Department Care Team (Late st Contact Info) Description 05/16/2022 Telephone [facility] [address] [place] [address] Elen Lindquist APRN-CNP [address] [phone] Social History Tobacco Use Types [...] She requests a return call to advise. [phone] YST COMPETITIVE INTELLIGENCE documented in this encounter Plan of Treatment Upcoming Encounters Date Type Department Care Team (Late st Contact Info) Description 05/24/2025 3:30 PM ANALYST COMPETITIVE INTELLIGENCE Office Visit [facility] Ger[facility] [address] [place] [phone] Clara Simmons MD [address] [place] [address] 10/07/2025 10:00 AM CDT Office Visit [facility] - Ophthalmology [address] [place] [phone] documented as of this encounter Goals Goal [...] documented as of this encounter Care Teams Assembler Production Line Relationship Specialty Start Date End Date Elen Lindquist APRN-ADVERTISING DIRECTOR PCP - General 06/02/20 08/19/24 Clara Simmons MD [address] [place] [address], [place] [address] PCP - General Internal Medicine Geriatric Medicine 08/20/24 documented as of this encounter
--- OUTSIDE RECORDS SUMMARY | 2025-02-17 10:26 | XMS_ITS | Clinical Summary ---
Author Organization [facility] Address [address] [place] [address] Care Team Providers Care Director Of Strategic Sourcing Name Role Phone Clara Simmons MD Primary Care Provider [phone] Source Comments [facility],non-owned Affiliates and Associated Physician Practices is amultiple site organization consisting of ambulatory clinics and hospital sitesin [place], [place], [place] and [place]. This disclosure is being madepursuant to the Care Everywhere program and may not contain all information available regarding this patient. Last updated 18.[facility] Allergies Active Allergy Reactions Criticality Noted Date [...] Encounters Date Type Department Care Team Description 02/17/2025 Telephone [facility] [address] [place] [phone] Clara Simmons MD Constipation 02/10/2025 Orders Only [facility] [address] [place] [phone] Clara Simmons MD Other constipation 02/08/2025 Telephone [facility] Centralized Scheduling [address] [place] [phone] Clara Simmons MD Question 02/08/2025 Telephone [facility] - Endocrinology [address] [place] [phone] Sarah Gonzalez MD Infusion (Requesting orders for Reclast) 01/20/2025 Travel 01/19/2025 Orders Only [facility] [address] [place] [address] Clara Simmons MD Generalized anxiety disorder; History of CVA in adulthood; Environmental allergies; Fatigue, unspecified type; Age-related osteoporosis without current pathological fracture; Prurigo nodularis; Acne, unspecified acne type 01/19/2025 Refill [facility] Scheduling Replaced by [facility] [place] [phone] Clara Simmons MD Refill Request 12/28/2024 Telephone [facility] [address] [place] [phone] Clara Simmons MD 12/20/2024 Travel 12/09/2024 Results Follow-Up [facility] [address] [place] [phone] Clara Simmons MD 12/07/2024 4:35 PM CDT - 12/07/2024 11:59 PM CDT Hospital Encounter [facility] OP DRAW STATION [address] [place] [address] Clara Simmons MD Discharge Disposition: Home or Self Care 12/07/2024 3:30 PM CDT Office Visit [facility] [address] [place] [phone] Clara Simmons MD Type 2 diabetes mellitus with diabetic nephropathy, without long-term current use of insulin (HCC) (Primary Dx); Major neurocognitive disorder (HCC); B12 deficiency; Thyroid disease; Generalized anxiety disorder; Hypomagnesemia 12/07/2024 Travel 11/29/2024 Telephone [facility] E[facility] [address], [facility] [address] [place] [phone] Didi Rodriguez AuD Hearing Aid Benefits 11/18/2024 11:45 AM CDT Video Visit [facility] - Neurosurgery [address] [place] [phone] Bailey Villegas MD Brain lesion ; Memory changes from Last 3 Months Immunizations Immunization Administration Dates Next Due Covid Glomera primary monoval ent 12+ yr 0.3mL Purple [...] CDT Respiratory Rate 18 07/21/2024 1:06 PM DIRECTOR OF STRATEGIC SOURCING Oxygen Saturation 95% 12/07/2024 3:05 PM CDT Inhaled Oxygen Concentration - - Weight 58.1 kg (128 lb) 12/07/2024 3:05 PM CDT Height 149.9 cm (4' 11) 11/04/2024 9:05 AM CDT Body Mass Index 25.85 11/04/2024 9:05 AM CDT Plan of Treatment Upcoming Encounters Date Type Department Care Team (Late st Contact Info) Description 05/24/2025 3:30 PM DIRECTOR OF STRATEGIC SOURCING Office Visit [facility] [address] [place] [address] [place] [address] Clara Simmons MD [address] [place] [phone] 10/07/2025 10:00 AM CDT Office Visit [facility] Ophthalmology [address] [place] [address] Health Maintenance Due Date Last Done Comments COLOGUARD (AGES 45-75) - COLON CA SCREENING 1960 [...] DIABETES - URINE PROTEIN SCREENING 05/19/2024 MEDICARE AW CALENDAR YEAR 2024 COVID-19 VACCINE (3 - 2024- season) 2025 09/20/2020, 08/30/2020 INFLUENZA VACCINE (#1) [...] PANEL (CALCIUM TOTAL) STAT 07/21/2024 1:17 PM DIRECTOR OF STRATEGIC SOURCING Senile osteoporosis DEXA BONE DENSITY AXIAL SKELETON Routine 03/23/2024 8:11 AM DIRECTOR OF STRATEGIC SOURCING Age-related osteoporosis without current pathological fracture HPV DETECTION HIGH RISK VIVIANE Routine 06/16/2023 11:21 AM DIRECTOR OF STRATEGIC SOURCING Well woman exam with routine gynecological exam ENDOSCOPY, COLON, SCREENING Routine 06/09/2023 1:26 PM DIRECTOR OF STRATEGIC SOURCING HIV-1 HIV-2 ANTIBODY + HIV P24 AG PANEL STAT 04/20/2021 1:25 PM DIRECTOR OF STRATEGIC SOURCING Preventative health care from Last 3 Months or Most Recently Relevant to Health Maintenance Results * TSH REFLEX FREE T4 (12/07/2024 4:46 PM CDT) TSH 0.918 0.350 - 4.940 uIU/mL 12/07/2024 5:54 PM CDT [facility] Blood BLOOD SPECIMEN / Unknown Lab Venipuncture / Unknown 12/07/2024 4:46 PM CDT 12/07/2024 4:58 PM CDT Clara Simmons MD LAB - CHEMISTRY ORDERABLES F inal Result Performing Organization Address City/[facility]/ZIP Co de Phone Number [address] [address], [facility] [phone] * MAGNESIUM BLOOD (12/07/2024 4:46 PM CDT) Magnesium 2.2 1.6 - 2.6 mg/dL 12/07/2024 5:37 PM CDT [facility] Blood BLOOD SPECIMEN / Unknown Lab Venipuncture / Unknown 12/07/2024 4:46 PM CDT 12/07/2024 4:58 PM CDT Clara Simmons MD LAB - CHEMISTRY ORDERABLES F inal Result [address] [address], [facility] [phone] * (ABNORMAL) VITAMIN B12 (12/07/2024 4:46 PM CDT) Vitamin B12 >2,000(H) 213 - 816 pg/mL 12/07/2024 6:03 PM CDT [facility] Blood BLOOD SPECIMEN / Unknown Lab Venipuncture / Unknown 12/07/2024 4:46 PM CDT 12/07/2024 4:58 PM CDT Clara Simmons MD LAB - CHEMISTRY ORDERABLES F inal Result [facility] [address] [place] [address], [facility] [phone] * HEMOGLOBIN A1C - POINT OF CARE (AMB) [facility] (12/07/2024 3:31 PM CDT) Pathologist [facility] Hemoglobin A1c POCT 5.6 % [address] BLOOD SPECIMEN / Unknown 12/07/2024 3:31 PM CDT Clara Simmons MD LAB - POINT OF CARE ORDERABL ES Final Result [address], [place] [address], [facility] [phone] * Mammo Bilat Screening W Charlie (10/22/2024 [...] AND BILATERAL BREAST TOMOSYNTHESIS WITH CAD LOCATION: [facility] EXAM DATE: 10/22/2024 HISTORY: Screening. Family history [...] METABOLIC PANEL (CALCIUM TOTAL) (07/21/2024 1:17 PM DIRECTOR OF STRATEGIC SOURCING) BUN 12 7 - 26 mg/dL 07/21/2024 1:54 PM [facility] Creatinine 0.54(L) 0.56 - 0.96 mg/dL 07/21/2024 1:54 PM [facility] Sodium 139 136 - 145 mmol/L 07/21/2024 1:54 PM [facility] Potassium 4.3 3.5 - 4.5 mmol/L 07/21/2024 1:54 PM [facility] Chloride 105 98 - 107 mmol/L 07/21/2024 1:54 PM [facility] CO2 26 22 - 29 mmol/L 07/21/2024 1:54 PM [facility] Glucose 122(H) 70 - 99 mg/dL 07/21/2024 1:54 PM [facility] Calcium 9.0 8.4 - 10.2 mg/dL 07/21/2024 1:54 PM [facility] Anion Gap 8 6 - 16 07/21/2024 1:54 PM [facility] BUN/Creatinine Ratio 22 7 - 23 07/21/2024 1:54 PM [facility] Osmolality Calculated 289 275 - 295 mOsm/kg 07/21/2024 1:54 PM [facility] eGFR by CKD-EPI >90 >=90 mL/min/1.7 3 m2 07/21/2024 1:54 PM [facility] Blood BLOOD SPECIMEN / Unknown Venipuncture / Unknown 07/21/2024 1:17 PM DIRECTOR OF STRATEGIC SOURCING 07/21/2024 1:27 PM DIRECTOR OF STRATEGIC SOURCING Sarah Gonzalez MD LAB - CHEMISTRY ORDERABLES Final Result [facility] [address] [place] [address], [facility] [phone] * BONE DENSITY AXIAL SKELETON(1OR MORE SITES)[id number] (03/23/2024 8:11 AM DIRECTOR OF STRATEGIC SOURCING) Anatomical Region Laterality Modality Other 03/23/2024 2:41 PM DIRECTOR OF STRATEGIC SOURCING Narrative 03/23/2024 3:07 PM DIRECTOR OF STRATEGIC SOURCING PROCEDURE: DEXA BONE DENSITY AXIAL SKELETON DATE/TIME [...] and below > Dictated by Ganesh Harris (Chip Separator) 03/23/2024 2:41 PM Samreen Varghese DO have [...] and below > Dictated by Ganesh Harris (Chip Separator) 03/23/2024 2:41 PM Samreen Varghese DO have personally reviewed and interpreted this examination/study. > Interpreting Provider: Samreen Sommer DO on 03/23/2024 3:07 PM Elen Lindquist [facility] LANDSCAPE ARCHITECT DEXA ORDERABLES Final R esult * HPV DETECTION HIGH RISK VIVIANE (06/16/2023 11:21 AM DIRECTOR OF STRATEGIC SOURCING) High Risk Human Papilloma Result Not detected Not detected 06/20/2023 12:53 PM DIRECTOR OF STRATEGIC SOURCING [facility] High Risk Human Papilloma Interp 06/20/2023 12:53 PM DIRECTOR OF STRATEGIC SOURCING [facility] Comment:High Risk Human Gurjit lloma Virus was Not Detected. Pathology/Cytolo gy MISCELLANEOUS SAMPLES / Unknown 06/16/2023 11:21 AM DIRECTOR OF STRATEGIC SOURCING 06/18/2023 6:03 AM DIRECTOR OF STRATEGIC SOURCING Narrative [facility] - 06/20/2023 12:53 PM DIRECTOR OF STRATEGIC SOURCING Nucleic acid isolated from the specimen was [...] (cytology, histology, and clinical information). Suyapa Tamayo [facility] LANDSCAPE ARCHITECT LAB - MICROBIOLOGY ORDERAB LES Final Result [facility] [address] [phone] * ENDOSCOPY, COLON, SCREENING (06/09/2023 1:26 PM DIRECTOR OF STRATEGIC SOURCING) Report Endoscopy POC Endoscopy Department Report _ [...] bowel preparation was evaluated using the BBPS (Strang Bowel Preparation Scale) with scores of: Right [...] non-oshea portions. Procedure Code(s): --- Professional --- 04630, Colonoscopy, flexible; with removal of tumor(s), polyp(s), or other lesion(s) by snare technique Diagnosis Code(s): --- Professional --- Z12.11, Encounter for screening for malignant neoplasm of colon D12.5, Benign neoplasm of sigmoid colon K64.0, First degree hemorrhoids K57.30, Diverticulosis of large intestine without perforation or abscess without bleeding CPT copyright 2021 [employer]. All rights reserved. The codes documented in this report are preliminary and upon server engineer review may be revised to meet current compliance requirements. Jose Roberto Paredes MD 06/09/2023 2:08:58 PM This report has been signed electronically. Note Initiated On: 06/09/2023 1:26 PM Number of Addenda: [id number] [place] [address] 06/09/2023 1:26 PM DIRECTOR OF STRATEGIC SOURCING Jose Roberto Paredes MD GI PROCEDURE ORDERABLES Edited Result - Final [facility] * HIV-1 HIV-2 ANTIBODY + HIV P24 AG PANEL (04/20/2021 1:25 PM DIRECTOR OF STRATEGIC SOURCING) HIV1/2 Ab + P24 Ag Non Reactive Non Reactive 04/20/2021 3:10 PM DIRECTOR OF STRATEGIC SOURCING [facility] Blood BLOOD SPECIMEN / Unknown Venipuncture / Unknown 04/20/2021 1:25 PM DIRECTOR OF STRATEGIC SOURCING 04/20/2021 2:12 PM DIRECTOR OF STRATEGIC SOURCING Narrative [facility] - 04/20/2021 3:10 PM DIRECTOR OF STRATEGIC SOURCING No Laboratory evidence of HIV infection. us Triny Yoder MD LAB - CHEMISTRY ORDERABLE S Final Result [facility] [address] [place] [address] from Last 3 Months or Most Recently Relevant to Health Maintenance Insurance * Guarantor: Reina Carlson Account Type Relation to Patient Date of Phone Billing Address Personal/Family Self 1960 [address] [place] [address] [facility] MANAGED MEDICARE ADV [address] MANAGED MEDICARE ADV * Guarantor: Reina Carlson Account Type Relation to Patient Date of Phone Billing Address Personal/Family Self [address] [place] [address] Care Teams Director Of Strategic Sourcing Relationship Specialty Start Date End Date Clara Simmons MD [address] [place] [phone] PCP - General Internal Medicine Geriatric Medicine 08/20/24
--- OUTSIDE RECORDS SUMMARY | 2025-02-17 10:26 | XMS_ITS | Encounter Summary ---
Author Organization [facility] Address [address] [place] [address] Care Team Providers Care Laser Beam Color Scanner Operator Name Role Phone Elen Lindquist Primary Care Provider Clara Simmons MD Primary Care Provider [phone] Encounter Details Date Type Department Care Team (Late st Contact Info) Description 05/06/2022 Telephone [facility] [address] [facility], [place] [address] Elen Lindquist APRN-CNP [address] [place] [phone] Social History Tobacco Use Types Packs/Day [...] AM CST Current Provider name: Elen Lindquist FACULTY DEAN Reason for call: Ms. Reina Carlson had COVID three weeks ago and has recovered. Her Employer wouldlike her to have a FLU shot and she doesn't want to have a FLU shot, she has documents from her jobthat need to be signed and faxed back over. Please return as soon as she faxes them over. Heads up call. Patient Call Back number: [phone] T TAXONOMY TEACHER documented in this encounter Plan of Treatment Upcoming Encounters Date Type Department Care Team (Late st Contact Info) Description 05/24/2025 3:30 PM PLANT TAXONOMY TEACHER Office Visit [facility] [address] [place] [phone] Clara Simmons MD [address] [place] [address] 10/07/2025 10:00 AM CDT Office Visit [facility] - Ophthalmology [address] [place] [phone] documented as of this encounter Goals Goal [...] documented as of this encounter Care Teams Laser Beam Color Scanner Operator Relationship Specialty Start Date End Date Elen Lindquist APRN-INTRANET DEVELOPER PCP - General 06/02/20 08/19/24 Clara Simmons MD [address] [place] [address] [place] [address] PCP - General Internal Medicine Geriatric Medicine 08/20/24 documented as of this encounter
--- OUTSIDE RECORDS SUMMARY | 2025-02-17 10:26 | XMS_ITS | Encounter Summary ---
Author Organization [facility] Address [address] [place] [address] Care Team Providers Care Horticulture Professor Name Role Phone Adelina Barrera MD Primary Care Provider Adelina Barrera MD Primary Care Provider Encounter Details Date Type Department Care Team (Late st Contact Info) Description 09/03/2013 Ancillary Orders [facility] Reference Laboratory [facility] [address] [facility] [place] [address] Leda Ralph, CARSON NO ADDRESS ON FILE Social History Tobacco Use Types Packs/Day Years Used Date Smoking Tobacco: Never Alcohol Use Standard Drinks/Week Comments No 0 (1 standard drink = 0.6 oz pur e alcohol) Comments Unknown Sex and Gender Information Value Date Recorded Sex Assigned at Not on file Legal Sex Female 6:20 AM SPEECH LANGUAGE SPECIALIST Gender Identity Not on file Sexual Orientation Not on file documented as of this encounter Plan of Treatment Not on file documented as of this encounter Visit Diagnoses Not on filedocumented in this encounter Care Teams Horticulture Professor Relationship Specialty Start Date End Date Adelina Barrera MD PCP - General Internal Medicine 10/26/13 02/17/14 Adelina Barrera MD PCP - General Internal Medicine 04/20/14 04/30/17 documented as of this encounter
--- OUTSIDE RECORDS SUMMARY | 2025-02-17 10:26 | XMS_ITS | Encounter Summary ---
Author Organization [facility] Address [address] [facility] [place] [address] Care Team Providers Care Children Counselor Name Role Phone Elen Lindquist APRN-CONTACT ACID PLANT OPERATOR HELPER Primary Care Provider Clara Simmons MD Primary Care Provider [phone] Encounter Details Date Type Department Care Team (Late Contact Info) Description 06/04/2022 Telephone [facility] Central [address] [place] [address] Sarah Gonzalez MD [address] [place] [address] [place] [address] Social History Tobacco Use Types [...] (Late Contact Info) Description 05/24/2025 3:30 PM SIGNAL OPERATOR LINGUIST Office Visit [facility] [address] [place] [address], [facility] [place] [phone] Clara Simmons MD [address] [place] [address] [place] [address] 10/07/2025 10:00 AM CDT Office Visit [facility] [address] [place] [address] documented as of this encounter Goals Goal [...] documented as of this encounter Care Teams Children Counselor Relationship Specialty Start Date End Date Elen Lindquist, CARSON-CONTACT ACID PLANT OPERATOR HELPER PCP - General 06/02/20 08/19/24 Clara Simmons MD [address] [place] [address] PCP - General Internal Medicine Geriatric Medicine 08/20/24 documented as of this encounter
--- OUTSIDE RECORDS SUMMARY | 2025-02-17 10:26 | XMS_ITS | Encounter Summary ---
Author Organization [facility] Address [address] [place] [address] Care Team Providers Care Emergency Preparedness Manager Name Role Phone Elen Lindquist APRNHEMALATHA Primary Care Provider Clara Simmons MD Primary Care Provider [phone] Encounter Details Date Type Department Care Team (Late Contact Info) Description 09/25/2021 Telephone [facility] [address] [place] [address] Elen Lindquist APRN-CNP [address] [place] [phone] Social History Tobacco Use Types Packs/Day [...] (Late Contact Info) Description 05/24/2025 3:30 PM MEDICAL RECORD TRANSCRIBER Office Visit [facility] - Geriatrics [address] [place] [phone] Clara Simmons MD [address] [place] [address] 10/07/2025 10:00 AM CDT Office Visit [facility] [address] [place] [phone] documented as of this encounter Goals Goal [...] documented as of this encounter Care Teams Emergency Preparedness Manager Relationship Specialty Start Date End Date Elen Lindquist, PRODUCTION TESTER-RENT CONTROL OFFICE MANAGER PCP - General 06/02/20 08/19/24 Clara Simmons MD [address] [place] [address] PCP - General Internal Medicine Geriatric Medicine 08/20/24 documented as of this encounter
--- OUTSIDE RECORDS SUMMARY | 2025-02-17 10:26 | XMS_ITS | Encounter Summary ---
Author Organization [facility] Address [address] [place] [address] Care Team Providers Care Pick And Shovel Man Name Role Phone Elen Lindquist APRN-PARTS DRIVER Primary Care Provider Clara Simmons MD Primary Care Provider [phone] Encounter Details Date Type Department Care Team (Late st Contact Info) Description 02/04/2022 Telephone [facility] [address] [place] [address] Elen Lindquist APRN-PARTS DRIVER [address] [phone] Social History Tobacco Use Types Packs/Day Years [...] before her trip. Pt requesting a callback [phone] documented in this encounter Plan of Treatment Upcoming Encounters Date Type Department Care Team (Late st Contact Info) Description 05/24/2025 3:30 PM INCIDENT RESPONSE SPECIALIST Office Visit [facility] [address] [place] [phone] Clara Simmons MD [address] [place] [address] 10/07/2025 10:00 AM CDT Office Visit [facility] - Ophthalmology [address] [place] [phone] documented as of this encounter Goals Goal [...] documented as of this encounter Care Teams Pick And Shovel Man Relationship Specialty Start Date End Date Elen Lindquist APRN-PARTS DRIVER PCP - General 06/02/20 08/19/24 Clara Simmons MD [address] [place] [address] PCP - General Internal Medicine Geriatric Medicine 08/20/24 documented as of this encounter
--- OUTSIDE RECORDS SUMMARY | 2025-02-17 10:26 | XMS_ITS | Encounter Summary ---
Author Organization [facility] Address [address] [place] [address] Care Team Providers Care Suit Maker Name Role Phone Adelina Barrera MD Primary Care Provider [phone] Encounter Details Date Type Department Care Team (Late st Contact Info) Description 05/24/2014 Ancillary Orders [facility] General Laboratory Services [address] [facility] [place] [phone] Adelina Barrera MD [address] [place] [address] [address] [place] [phone] Social History Tobacco Use Types Packs/Day Years Used Date Smoking Tobacco: Never Smokeless Tobacco: Never Alcohol Use Standard Drinks/Week Comments No 0 (1 standard drink = 0.6 oz pur e alcohol) Comments No Sex and Gender Information Value Date Recorded Sex Assigned at Not on file Legal Sex Female 6:20 AM ROLL CLEANER Gender Identity Not on file Sexual Orientation Not on file Occupation Industry Job Start Date Job End Date Not on file Not on file Not on file Not on file documented as of this encounter Plan of Treatment Not on file documented as of this encounter Visit Diagnoses Not on filedocumented in this encounter Care Teams Suit Maker Relationship Specialty Start Date End Date Adelina Barrera MD PCP - General Internal Medicine 04/20/14 04/30/17 documented as of this encounter
--- OUTSIDE RECORDS SUMMARY | 2025-02-17 10:26 | XMS_ITS | Encounter Summary ---
Author Organization [facility] Address [address] [facility] [address] Care Team Providers Care Technical Training Specialist Name Role Phone Clara Simmons MD Primary Care Provider [phone] Encounter Details Date Type Department Care Team (Late st Contact Info) Description 09/06/2024 Telephone [facility] [address] [place] [address] [place] [phone] Clara Simmons MD [address] [place] [address] Social History Tobacco Use Types Packs/Day Years [...] to know what is this med for) [id number] [address] [facility] [id number] [facility] 159 Patient Call Back Number: [phone] documented in this encounter Plan of Treatment Upcoming Encounters Date Type Department Care Team (Late st Contact Info) Description 05/24/2025 3:30 PM DOCK GRADER Office Visit [facility] [address] [place] [phone] Clara Simmons MD [address] [place] [address] 10/07/2025 10:00 AM CDT Office Visit [facility] [address] [place] [phone] documented as of this encounter Goals Goal [...] on filedocumented in this encounter Care Teams Technical Training Specialist Relationship Specialty Start Date End Date Clara Simmons MD [address] [place] [address] PCP - General Internal Medicine Geriatric Medicine 08/20/24 documented as of this encounter
[2025-02-17] MEDS: CIPROFLOXACIN 500 MG TAB PO (11:15)
[2025-02-17 11:28] VITALS: RESP 20
== END 2025-02-17 11:30 | disposition home or self-care (01) ==
PROVIDERS: Emergency Provider Emergency Medicine
DX: K57.32 Diverticulitis of large intestine without perforation or abscess without bleeding (principal); F32.A Depression, unspecified; Z86.73 Personal history of transient ischemic attack (TIA), and cerebral infarction without residual deficits; Z79.82 Long term (current) use of aspirin; Z79.899 Other long term (current) drug therapy
CPT/HCPCS: 36415; 74177; 80053; 81003; 83605; 85025; 85610; 85730; 99284; A9270; Q9967